=== PATIENT | female | born 1940 | race Caucasian/White ===

== ENCOUNTER 2018-01-31 05:57 | Inpatient (IN) | payer BC, OTHER ==
[~2018-01-31] VITALS: Ht 160 cm; Wt 75.9 kg
[2018-01-31] MEDS ORDERED: METHYLPREDNISOLONE 125 MG VIAL IV STA (06:15)
[2018-01-31] MEDS ORDERED: HYDROCODONE/HOMATROPINE SYRUP 5MG/1.5MG 5ML UDP PO STA (06:15)
[2018-01-31] MEDS ORDERED: LEVALBUTEROL 1.25MG/0.5ML NEB INH STA ×2 (06:15→08:12)
[2018-01-31 06:25] LABS: EOS % 15.6 %; EOS ABS # 1.56 K/uL (0-0.5); HEMATOCRIT 41.1 % (37-47); HEMOGLOBIN 14.5 g/dL (12.0-16.0); IG# 0.04 K/uL (0.00-0.02); LYMPH % 22.1 %; MEAN CELL VOLUME 90.7 fL (80-100); MEAN CORPUSCULAR HGB CONC 35.3 g/dl (32-36); NEUT % 51.9 %; NEUT ABS # 5.17 K/uL (1.4-6.5); PLATELET COUNT 244 K/uL (130-400); RED CELL DISTRIBUTION WIDTH CV 12.8 % (11.5-14.5); RED CELL DISTRIBUTION WIDTH SD 42.1 fL (36.4-46.3); WHITE BLOOD COUNT 9.97 K/uL (4.8-10.8)
[2018-01-31] MEDS ORDERED: PIPERACILLIN/TAZOBACTAM 4.5 GM/100ML D5W IV STA (06:31)
--- NOTE | 2018-01-31 06:34 | DIAGNOSTIC IMAGING REPORT ---
CHEST ONE VIEW PORTABLE CLINICAL HISTORY: Pt c/o SOB dyspnea COMPARISON STUDY: No previous studies for comparison. FINDINGS: The bones soft tissues and hemidiaphragms are normal. The cardiomediastinal silhouette is normal. The lungs are clear. The pulmonary vasculature is some increased IMPRESSION: Pulmonary vascular congestion The above report was generated using voice recognition software. It may contain grammatical, syntax or spelling errors. Electronically signed by: Benny Joshi M.D. 01/31/2018 6:32 AM Dictated Date/Time: 01/31/2018 6:29 AM
[2018-01-31] MEDS ORDERED: HYDR12.55 PO (06:45)
[2018-01-31] MEDS ORDERED: LEVAQUIN 750MG / 150ML D5W IV ONE (06:45)
[2018-01-31] MEDS ORDERED: LORA-741 PO (06:45)
[2018-01-31 06:46] LABS: ALBUMIN 3.6 gm/dl (3.4-5.0); CALCIUM 8.5 mg/dl (8.5-10.1); CREATININE 0.94 mg/dl (0.60-1.20); POTASSIUM 4.1 mmol/L (3.5-5.1)
[2018-01-31] MEDS ORDERED: TRAM-10 PO (06:46)
[2018-01-31] MEDS ORDERED: METO-217 PO (06:46)
[2018-01-31] MEDS ORDERED: FUROSEMIDE 40 MG/4 ML VIAL IV STA (06:47)
[2018-01-31 06:59] LABS: CKMB 5.1 ng/ml (0.5-3.6); TOTAL PROTEIN 7.3 gm/dl (6.4-8.2)
--- NOTE | 2018-01-31 07:12 | EMERGENCY ROOM VISIT NOTE ---
History Report prepared by Fabiola: Dot Johnson Under the Supervision of: Dr. Pooja Vail M.D. First contact with patient: 06:07 Chief Complaint: SHORTNESS OF BREATH Stated Complaint: SHORT OF BREATH Nursing Triage Summary: pt brought to ed via ems. pt traveled from [place] for business. pt reports non productive cough x 1 month and SOB that started last night and progressively worsened. per ems pt was speaking in 1-2 words and using accessory muscles. O2 sat on room air was 85%. EMS gave pt duoneb and pt went into a rapid a fib in 170s. 10mg cardizem administered. Pt currenlty NSR. History of Present Illness The patient is a 77 year old female who presents to the Emergency Room with complaints of a worsening cough for the past month. She recently traveled to the area from [place] for business. She was at her hotel last night and could not sleep due to her worsening cough. She felt very short of breath and called an ambulance. The patient received a breathing treatment en route which caused her to go into rapid a-fib with RVR. She then received Cardizem en route. The patient denies any chest pain. She is currently on NC/O2 but is not typically on oxygen. She becomes more short of breath with talking. Source of History: patient Onset: 1 month ago Position: chest (respiratory) Quality: other (cough) Timing: worsening Modifying Factors (Worsening): other (talking) Modifying Factors (Relieving): oxygen Associated Symptoms: + SOB, No chest pain Review of Systems See HPI for pertinent positives & negatives. A total of 10 systems reviewed and were otherwise negative. Past Medical & Surgical Medical Problems: (1) Acute respiratory failure with hypoxia (2) Lumbago Family History No pertinent history stated. Social History Smoking Status: Never Smoker Occupation Status: employed Current/Historical Medications Scheduled Hydrochlorothiazide (Hydrochlorothiazide), 1 TAB PO DAILY Losartan Potassium (Cozaar), 1 TAB PO DAILY Metoprolol Succinate (Toprol Xl), 50 MG PO DAILY Simvastatin (Zocor), 1 TAB PO HS Scheduled PRN Budesonide/Formoterol Fumarate (Symbicort 160-4.5 Mcg/Act), 2 PUFFS INH BID PRN for SOB/Wheezing Lorazepam (Ativan), 0.5 MG PO BID PRN for Anxiety Tramadol (Ultram), 50 MG PO Q6 PRN for Pain Miscellaneous Medications Fluticasone Propionate (Nasal) (Flonase Allergy Relief) Allergies Coded Allergies: No Known Allergies (Unverified , 01/31/18) Physical Exam Vital Signs Date Time Temp Pulse Resp B/P (MAP) Pulse Ox O2 Delivery O2 Flow Rate FiO2 01/31/18 08:44 89 22 126/79 99 Nasal Cannula 4.0 01/31/18 08:32 72 18 97 Nasal Cannula 3.0 01/31/18 07:50 76 20 129/69 98 Nasal Cannula 4.0 01/31/18 07:01 81 24 90/60 96 Nasal Cannula 5.0 01/31/18 06:42 91 Nasal Cannula 2.0 01/31/18 06:24 90 01/31/18 06:18 99 01/31/18 06:16 147 01/31/18 06:15 116 01/31/18 06:10 91 Nasal Cannula 4.0 01/31/18 06:06 88 Room Air 01/31/18 06:04 99 01/31/18 06:03 94 01/31/18 05:58 36.5 90 36 135/84 88 Room Air Physical Exam GENERAL: Awake, alert, appears very uncomfortable. HENT: Normocephalic, atraumatic. Oropharynx unremarkable. EYES: Normal conjunctiva. Sclera non-icteric. NECK: Supple. No nuchal rigidity. FROM. No JVD. RESPIRATORY: Bilateral expiratory wheezes. CARDIAC: Regular rate, normal rhythm. Extremities warm and well perfused. Pulses equal. ABDOMEN: Soft, non-distended. No tenderness to palpation. No rebound or guarding. No masses. RECTAL: Deferred. MUSCULOSKELETAL: Chest examination reveals no tenderness. The back is symmetrical on inspection without obvious abnormality. There is no CVA tenderness to palpation. No joint edema. LOWER EXTREMITIES: Calves are equal size bilaterally and non-tender. No edema. No discoloration. NEURO: Normal sensorium. No sensory or motor deficits noted. SKIN: No rash or jaundice noted. Medical Decision & Procedures ER Provider Diagnostic Interpretation: Radiology results as stated below per my review and radiologist interpretation: CHEST ONE VIEW PORTABLE CLINICAL HISTORY: Pt c/o SOB dyspnea COMPARISON STUDY: No previous studies for comparison. FINDINGS: The bones soft tissues and hemidiaphragms are normal. The cardiomediastinal silhouette is normal. The lungs are clear. The pulmonary vasculature is some increased IMPRESSION: Pulmonary vascular congestion The above report was generated using voice recognition software. It may contain grammatical, syntax or spelling errors. Electronically signed by: Benny Joshi M.D. 01/31/2018 6:32 AM Dictated Date/Time: 01/31/2018 6:29 AM (CHEST FOR PE) ANGIO WITH CT DOSE: 226.83 mGy.cm HISTORY: Chest pain. Dyspnea. Dyspnea TECHNIQUE: Multiaxial CT images of the chest were performed following the intravenous administration of contrast to evaluate the pulmonary arteries. Maximal intensity projection images were also obtained. A dose lowering technique was utilized adhering to the principles of ALARA. COMPARISON STUDY: None. FINDINGS: Somewhat limited exam due to patient respiratory motion. There are vasculature is not appreciated. Main or central pulmonary arterial vasculature enhances appropriately. There are no significant central filling defects. Somewhat distended air-filled esophagus without and with a moderately thickened wall. No major mediastinal or hilar adenopathy. Several small reactive nodes throughout. Moderate bibasilar atelectatic and/or infiltrative change. Moderate generalized degenerative change of the thoracic spine. No compression deformity. IMPRESSION: 1. Study is negative for major pulmonary embolus 2. Nondiagnostic evaluation of the peripheral arterial vasculature due to respiratory motion artifact. 3. Mild bibasilar atelectatic and/or infiltrative change. 4. Mild esophageal wall thickening throughout. 5. Several small reactive nodes in the hilar and mediastinal region most likely reactive. The above report was generated using voice recognition software. It may contain grammatical, syntax or spelling errors. Electronically signed by: Benny Joshi M.D. 01/31/2018 7:42 AM Dictated Date/Time: 01/31/2018 7:36 AM Laboratory Results 01/31/18 06:10 Red Blood Count 4.53, Mean Corpuscular Volume 90.7, Mean Corpuscular Hemoglobin 32.0, Mean Corpuscular Hemoglobin Concent 35.3, Mean Platelet Volume 10.0, Neutrophils (%) (Auto) 51.9, Lymphocytes (%) (Auto) 22.1, Monocytes (%) (Auto) 9.0, Eosinophils (%) (Auto) 15.6, Basophils (%) (Auto) 1.0, Neutrophils # (Auto ) 5.17, Lymphocytes # (Auto) 2.20, Monocytes # (Auto) 0.90, Eosinophils # (Auto ) 1.56, Basophils # (Auto) 0.10 01/31/18 06:10 Test 01/31/18 00:00 01/31/18 06:05 01/31/18 06:10 01/31/18 06:20 Urine Color YELLOW Urine Appearance CLEAR (CLEAR) Urine pH 5.0 (4.5-7.5) Urine Specific [place] 1.017 (1.000-1.030) Urine Protein NEG (NEG) Urine Glucose (UA) NEG (NEG) Urine Ketones NEG (NEG) Urine Occult Blood NEG (NEG) Urine Nitrite NEG (NEG) Urine Bilirubin NEG (NEG) Urine Urobilinogen NEG (NEG) Urine Leukocyte Esterase NEG (NEG) Influenza Type A (RT-PCR) Neg for Influ A (NEG) Influenza Type B (RT-PCR) Neg for Influ B (NEG) White Blood Count 9.97 K/uL (4.8-10.8) Red Blood Count 4.53 M/uL (4.2-5.4) Hemoglobin 14.5 g/dL (12.0-16.0) Hematocrit 41.1 % (37-47) Mean Corpuscular Volume 90.7 fL (80-100) Mean Corpuscular Hemoglobin 32.0 pg (25-34) Mean Corpuscular Hemoglobin Concent 35.3 g/dl (32-36) Platelet Count 244 K/uL (130-400) Mean Platelet Volume 10.0 fL (7.4-10.4) Neutrophils (%) (Auto) 51.9 % Lymphocytes (%) (Auto) 22.1 % Monocytes (%) (Auto) 9.0 % Eosinophils (%) (Auto) 15.6 % Basophils (%) (Auto) 1.0 % Neutrophils # (Auto) 5.17 K/uL (1.4-6.5) Lymphocytes # (Auto) 2.20 K/uL (1.2-3.4) Monocytes # (Auto) 0.90 K/uL (0.11-0.59) Eosinophils # (Auto) 1.56 K/uL (0-0.5) Basophils # (Auto) 0.10 K/uL (0-0.2) RDW Standard Deviation 42.1 fL (36.4-46.3) RDW Coefficient of Variation 12.8 % (11.5-14.5) Immature Granulocyte % (Auto) 0.4 % Immature Granulocyte # (Auto) 0.04 K/uL (0.00-0.02) Anion Gap 10.0 mmol/L (3-11) Est Creatinine Clear Calc Drug Dose 50.6 ml/min Estimated GFR () 68.8 Estimated GFR (Non- 59.3 BUN/Creatinine Ratio 17.5 (10-20) Calcium Level 8.5 mg/dl (8.5-10.1) Total Bilirubin 0.3 mg/dl (0.2-1) Aspartate Amino Transf (AST/SGOT) 28 U/L (15-37) Alanine Aminotransferase (ALT/SGPT) 26 U/L (12-78) Alkaline Phosphatase 72 U/L (45-117) Total Creatine Kinase 170 U/L (26-192) Creatine Kinase MB 5.1 ng/ml (0.5-3.6) Creatine Kinase MB Ratio 3.0 (0-3.0) Pro-B-Type Natriuretic Peptide 253 pg/ml (0-900) Total Protein 7.3 gm/dl (6.4-8.2) Albumin 3.6 gm/dl (3.4-5.0) Globulin 3.7 gm/dl (2.5-4.0) Albumin/Globulin Ratio 1.0 (0.9-2) Test 01/31/18 06:43 01/31/18 07:45 Bedside D-Dimer > 450 ng/mlFEU (0-450) Influenza Type A Antigen Neg for Influ A (NEG) Influenza Type B Antigen Neg for Influ B (NEG) Labs reviewed by ED physician. Medications Administered Medications (Trade) Dose Ordered Sig/Kavita Route Start Time Stop Time Status Last Admin Dose Admin Hydrocodone Bit/ Homatropine Methylb (Hycodan Syrup) 5 ml NOW STAT PO 01/31/18 06:15 01/31/18 06:18 DC 01/31/18 06:24 5 ML Methylprednisolone Sodium Succinate (Solu-Medrol IV) 60 mg NOW STAT IV 01/31/18 06:15 01/31/18 06:18 DC 01/31/18 06:24 60 MG Piperacillin Sod/ Tazobactam Sod (Zosyn Iv) 4.5 gm NOW STAT IV 01/31/18 06:31 01/31/18 06:34 DC 01/31/18 07:03 4.5 GM Levofloxacin (Levaquin / D5W) 750 mg NOW ONCE IV 01/31/18 06:45 01/31/18 06:46 DC 01/31/18 07:46 750 MG Furosemide (Lasix Inj) 40 mg NOW STAT IV 01/31/18 06:47 01/31/18 06:48 DC 01/31/18 07:03 40 MG Levalbuterol (Xopenex 1.25MG/ 0.5ML Neb) 1.25 mg NOW STAT INH 01/31/18 08:12 01/31/18 08:13 DC 01/31/18 08:31 1.25 MG ECG Per My Interpretation Indication: SOB/dyspnea Rate (beats per minute): 89 Rhythm: normal sinus Findings: no acute ischemic change, other (no ST elevation or depression) ED Course 0607: Past medical records reviewed. The patient was evaluated in room A12B. A complete history and physical examination was performed. 0615: Solu-Medrol 60 mg IV, Levalbuterol 1.25 mg INH, Hycodan Syrup 5 ml PO 0631: Zosyn 4.5 gm IV 0645: Levofloxacin 750 mg IV 0647: Lasix 40 mg IV 0700: I reassessed the patient and she is stable at this time. 0749: Upon reevaluation the patient is doing well. I discussed the results and treatment plan with the patient. I answered all pertaining questions that she had. She expressed understanding and verbalized agreement. 0757: I spoke with Dr. Urbina. We discussed the patient's case. The patient will be evaluated by the [facility] for further management. Medical Decision Differential diagnosis: Etiologies such as infections, reactive airway disease, pneumonia, pneumothorax , COPD, CHF, cardiac ischemia, pulmonary embolism, musculoskeletal, gastrointestinal, as well as others were entertained. This is a 77-year-old female who presents the emergency department complaining of hypoxia. The patient is not normally on oxygen and has been complaining of a cough that has been ongoing for the past month. She is flu negative however was given breathing treatments as well as Solu-Medrol on Hycodan here in the emergency department. She was found to have an elevation in her troponin. Based on the patient's chest x-ray she was given Lasix. Because the patient continued to be hypoxic as well as her travel history she was sent for CAT scan of the chest. She was started on antibiotics. I did discuss this case with the hospitalist service who agreed that the patient. Patient was in agreement with the treatment plan. Medication Reconcilliation Current Medication List: was personally reviewed by me Blood Pressure Screening Patient's blood pressure: Normal blood pressure Consults Time Called: [phone] Consulting Physician: Dr. Urbina Returned Call: [phone] Urbina. We discussed the patient's case. The patient will be evaluated by the [facility] for further management. Impression Primary Impression: Hypoxia Critical Care I have personally spent greater than 30 minutes of critical care time in the direct management of this patient. This includes bedside care, interpretation of diagnostic studies, and testing, discussion with consultants, patient, and family members, and other required patient management activities. This 30 minutes is in excess of all separately billable procedures. Scribe Attestation The scribe's documentation has been prepared under my direction and personally reviewed by me in its entirety. I confirm that the note above accurately reflects all work, treatment, procedures, and medical decision making performed by me. Departure Information Dispostion Being Evaluated By Hospitalist Referrals No Doctor, Assigned (PCP) Patient Instructions My [facility]
[2018-01-31] MEDS ORDERED: OPTIRAY 320 IV PRN (07:30)
--- NOTE | 2018-01-31 07:43 | DIAGNOSTIC IMAGING REPORT ---
(CHEST FOR PE) ANGIO WITH CT DOSE: 226.83 mGy.cm HISTORY: Chest pain. Dyspnea. Dyspnea TECHNIQUE: Multiaxial CT images of the chest were performed following the intravenous administration of contrast to evaluate the pulmonary arteries. Maximal intensity projection images were also obtained. A dose lowering technique was utilized adhering to the principles of ALARA. COMPARISON STUDY: None. FINDINGS: Somewhat limited exam due to patient respiratory motion. There are vasculature is not appreciated. Main or central pulmonary arterial vasculature enhances appropriately. There are no significant central filling defects. Somewhat distended air-filled esophagus without and with a moderately thickened wall. No major mediastinal or hilar adenopathy. Several small reactive nodes throughout. Moderate bibasilar atelectatic and/or infiltrative change. Moderate generalized degenerative change of the thoracic spine. No compression deformity. IMPRESSION: 1. Study is negative for major pulmonary embolus 2. Nondiagnostic evaluation of the peripheral arterial vasculature due to respiratory motion artifact. 3. Mild bibasilar atelectatic and/or infiltrative change. 4. Mild esophageal wall thickening throughout. 5. Several small reactive nodes in the hilar and mediastinal region most likely reactive. The above report was generated using voice recognition software. It may contain grammatical, syntax or spelling errors. Electronically signed by: Benny Joshi M.D. 01/31/2018 7:42 AM Dictated Date/Time: 01/31/2018 7:36 AM
[2018-01-31 08:14] LABS: INFLUENZA A PCR Neg for Influ A (NEG); INFLUENZA B PCR Neg for Influ B (NEG)
[2018-01-31] MEDS ORDERED: ONDANSETRON INJ 2 MG/ML 2 ML VIAL IV PRN (08:30)
[2018-01-31] MEDS ORDERED: ACETAMINOPHEN 325 MG TAB PO PRN (08:30)
[2018-01-31] MEDS ORDERED: POLYETHYLENE (MIRALAX) 17 GM PACK PO PRN (08:30)
[2018-01-31] MEDS ORDERED: MAGNESIUM HYDROXIDE SUSP 30 ML UDC PO PRN (08:30)
[2018-01-31] MEDS ORDERED: ALUMINUM/MAGNESIUM/SIMETH (MAALOX MAX) 30 ML UDC PO PRN (08:30)
[2018-01-31 08:32] VITALS: PULSE 72; O2SAT 97
[2018-01-31] MEDS ORDERED: LEVALBUTEROL 1.25MG/3ML NEB INH PRN (09:15)
--- NOTE | 2018-01-31 09:35 | History and Physical ---
History & Physical Date & Time of Service: Jan 31, 2018 at 09:17 Chief Complaint: Short Of Breath Primary Care Physician: No Doctor, Assigned History of Present Illness Source: patient Ms. Adame is a 77 y/o female with PMHx of HTN, HLD, Isolated Episode of Ventricular Tachycardia (Asymptomatic - 6 Beat), Benign Atrial Ectopy, and Possible Mild Asthma who presents to the ED c/o progressive cough x 1 month and worsening SOB starting last night. Patient resides in [place] and is here on business. 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 However, she states this coughing does not appear similar to her chronic cough. She stated initially the cough was minimally productive of sputum however is largely dry. She states she was told she may have asthma in the past but later someone said she did not. She does have Symbicort that she takes as needed when traveling in high altitude places but denies utilizing a rescue inhaler. She has not used her Symbicort for the symptoms. She reports, she was walking from the living room to the kitchen late last night and developed shortness of breath and is experiencing coughing attacks. She states it feels as if there is a blockage as she is inhaling. She denies chest pain or pleuritic chest pain. She states prior to arrival of EMS, she would only be able to speak 1-2 words without significant shortness of breath and coughing. At this time she is able to have a full conversation but still gets dyspneic with minimal exertion. She denies shortness of breath at rest after treatment in the ED. In the ambulance , she was treated with a DuoNeb treatment and converted to atrial fibrillation with RVR and was given 10 mg Cardizem and quickly converted to NSR. She denies a personal history of cardiac disease and. Does not think she has ever been diagnosed with heart failure. She does report family history of coronary artery disease and sudden cardiac only in male relatives on both maternal and paternal sides. She is not aware of specific diagnoses of any cardiomyopathies from this. In the ED, patient was hypoxic on room air with improvement with supplemental O2. She is remained in NSR and tolerated Xopenex nebulizers. She is afebrile without leukocytosis. Differential reveals high levels of eosinophilia. She was treated with Lasix 40 mg 1 dose and is producing urine. Zosyn and levofloxacin initiated. Past Medical/Surgical History 1. HTN 2. HLD 3. Isolated Episode of VT (Asymptomatic - 6 Beats) 4. Benign Atrial Ectopy 5. Possible Asthma 6. Vocal Cord Atrophy S/P Injections x 2 7. Retinal Detachment Repair Family History Heart Disease Lung Cancer MOTHER, Sudden Cardiac (In multiple male relatives - maternal and paternal side - before age 50 in male relatives) Social History Smoking Status: Never Smoker Smokeless Tobacco Use: No Alcohol Use: none Drug Use: none Housing status: lives with family Occupational Status: employed Allergies Coded Allergies: No Known Allergies (Unverified , 01/31/18) Home Medications Scheduled Hydrochlorothiazide (Hydrochlorothiazide), 1 TAB PO DAILY Losartan Potassium (Cozaar), 1 TAB PO DAILY Metoprolol Succinate (Toprol Xl), 50 MG PO DAILY Simvastatin (Zocor), 1 TAB PO HS Scheduled PRN Budesonide/Formoterol Fumarate (Symbicort 160-4.5 Mcg/Act), 2 PUFFS INH BID PRN for SOB/Wheezing Lorazepam (Ativan), 0.5 MG PO BID PRN for Anxiety Tramadol (Ultram), 50 MG PO Q6 PRN for Pain Miscellaneous Medications Fluticasone Propionate (Nasal) (Flonase Allergy Relief) Review of Systems Constitutional: No fever, No chills ENT: + nasal symptoms, No sore throat, No trouble swallowing Respiratory: + cough, + wheezing, + dyspnea on exertion, + dyspnea at rest ( improving), No sputum, No hemoptysis Cardiovascular: No chest pain, No orthopnea, No palpitations Abdomen: No pain, No nausea, No vomiting, No diarrhea, No constipation, No GI bleeding Musculoskeletal: + swelling (chronic b/l feet - intermittent), No calf pain Genitourinary - Female: No dysuria Hematologic / Lymphatic: No abnormal bleeding/bruising Integumentary: No rash Physical Exam Vital Signs Date Time Temp Pulse Resp B/P (MAP) Pulse Ox O2 Delivery O2 Flow Rate FiO2 01/31/18 08:44 89 22 126/79 99 Nasal Cannula 4.0 01/31/18 08:32 72 18 97 Nasal Cannula 3.0 01/31/18 07:50 76 20 129/69 98 Nasal Cannula 4.0 01/31/18 07:01 81 24 90/60 96 Nasal Cannula 5.0 01/31/18 06:42 91 Nasal Cannula 2.0 01/31/18 06:24 90 01/31/18 06:18 99 01/31/18 06:16 147 01/31/18 06:15 116 01/31/18 06:10 91 Nasal Cannula 4.0 01/31/18 06:06 88 Room Air 01/31/18 06:04 99 01/31/18 06:03 94 01/31/18 05:58 36.5 90 36 135/84 88 Room Air General Appearance: no apparent distress, + thin Head: normocephalic, atraumatic Eyes: sclerae normal ENT: hearing grossly normal, pharynx normal, + nasal congestion Neck: supple, no JVD, trachea midline Respiratory/Chest: no respiratory distress, no accessory muscle use, + crackles (bases b/l), + wheezing (scattered exp. wheeze) Cardiovascular: regular rate, rhythm, no gallop, no murmur Abdomen/GI: normal bowel sounds, non tender, soft Extremities/Musculoskelatal: no pedal edema Neurologic/Psych: alert, oriented x 3 Skin: normal color, warm/dry Diagnostics Laboratory Results Results Past 24 Hours Test 01/31/18 00:00 01/31/18 06:05 01/31/18 06:10 01/31/18 06:20 Range/Units Urine Color YELLOW Urine Appearance CLEAR CLEAR Urine pH 5.0 4.5-7.5 Urine Specific White 1.017 1.000-1.030 Urine Protein NEG NEG Urine Glucose (UA) NEG NEG Urine Ketones NEG NEG Urine Occult Blood NEG NEG Urine Nitrite NEG NEG Urine Bilirubin NEG NEG Urine Urobilinogen NEG NEG Urine Leukocyte Esterase NEG NEG Influenza Type A (RT-PCR) Neg for Influ A NEG Influenza Type B (RT-PCR) Neg for Influ B NEG White Blood Count 9.97 4.8-10.8 K/uL Red Blood Count 4.53 4.2-5.4 M/uL Hemoglobin 14.5 12.0-16.0 g/dL Hematocrit 41.1 37-47 % Mean Corpuscular Volume 90.7 80-100 fL Mean Corpuscular Hemoglobin 32.0 25-34 pg Mean Corpuscular Hemoglobin Concent 35.3 32-36 g/dl Platelet Count 244 130-400 K/uL Mean Platelet Volume 10.0 7.4-10.4 fL Neutrophils (%) (Auto) 51.9 % Lymphocytes (%) (Auto) 22.1 % Monocytes (%) (Auto) 9.0 % Eosinophils (%) (Auto) 15.6 % Basophils (%) (Auto) 1.0 % Neutrophils # (Auto) 5.17 1.4-6.5 K/uL Lymphocytes # (Auto) 2.20 1.2-3.4 K/uL Monocytes # (Auto) 0.90 0.11-0.59 K/uL Eosinophils # (Auto) 1.56 0-0.5 K/uL Basophils # (Auto) 0.10 0-0.2 K/uL RDW Standard Deviation 42.1 36.4-46.3 fL RDW Coefficient of Variation 12.8 11.5-14.5 % Immature Granulocyte % (Auto) 0.4 % Immature Granulocyte # (Auto) 0.04 0.00-0.02 K/uL Sodium Level 130 136-145 mmol/L Potassium Level 4.1 3.5-5.1 mmol/L Chloride Level 98 98-107 mmol/L Carbon Dioxide Level 22 21-32 mmol/L Anion Gap 10.0 3-11 mmol/L Blood Urea Nitrogen 17 7-18 mg/dl Creatinine 0.94 0.60-1.20 mg/dl Est Creatinine Clear Calc Drug Dose 50.6 ml/min Estimated GFR () 68.8 Estimated GFR (Non- 59.3 BUN/Creatinine Ratio 17.5 10-20 Random Glucose 122 70-99 mg/dl Calcium Level 8.5 8.5-10.1 mg/dl Total Bilirubin 0.3 0.2-1 mg/dl Aspartate Amino Transf (AST/SGOT) 28 15-37 U/L Alanine Aminotransferase (ALT/SGPT) 26 12-78 U/L Alkaline Phosphatase 72 45-117 U/L Total Creatine Kinase 170 26-192 U/L Creatine Kinase MB 5.1 0.5-3.6 ng/ml Creatine Kinase MB Ratio 3.0 0-3.0 Troponin I 0.337 0-0.045 ng/ml Pro-B-Type Natriuretic Peptide 253 0-900 pg/ml Total Protein 7.3 6.4-8.2 gm/dl Albumin 3.6 3.4-5.0 gm/dl Globulin 3.7 2.5-4.0 gm/dl Albumin/Globulin Ratio 1.0 0.9-2 Test 01/31/18 06:43 01/31/18 07:45 Range/Units Bedside D-Dimer > 450 0-450 ng/mlFEU Microbiology Results 01/31/18 Blood Culture, Received Pending 01/31/18 Blood Culture, Received Pending Diagnostic Radiology (CHEST FOR PE) ANGIO WITH FINDINGS: Somewhat limited exam due to patient respiratory motion. There are vasculature is not appreciated. Main or central pulmonary arterial vasculature enhances appropriately. There are no significant central filling defects. Somewhat distended air-filled esophagus without and with a moderately thickened wall. No major mediastinal or hilar adenopathy. Several small reactive nodes throughout. Moderate bibasilar atelectatic and/or infiltrative change. Moderate generalized degenerative change of the thoracic spine. No compression deformity. IMPRESSION: 1. Study is negative for major pulmonary embolus 2. Nondiagnostic evaluation of the peripheral arterial vasculature due to respiratory motion artifact. 3. Mild bibasilar atelectatic and/or infiltrative change. 4. Mild esophageal wall thickening throughout. 5. Several small reactive nodes in the hilar and mediastinal region most likely reactive. EKG Normal sinus rhythm Normal ECG No previous ECGs available Impression Assessment and Plan Ms. Adame is a 77 y/o female with PMHx of HTN, HLD, Isolated Episode of Ventricular Tachycardia (Asymptomatic - 6 Beat), Benign Atrial Ectopy, and Possible Mild Asthma who presents to the ED c/o progressive cough x 1 month and worsening SOB starting last night. Acute Hypoxic Respiratory Failure 2/2 Bronchitis vs Asthma Exacerbation vs Atypical/Viral Etiology: -Differential reveals high levels of eosinophilia -may be asthma versus atypical etiology - given resident of [place] possible fungal etiology/ histoplasmosis? -Imaging showing vascular congestion do not feel that this is directly cardiac - but more of a pulmonary etiology --We will monitor output after Lasix and hold on further dosing at this time -Doxycycline 100 mg IV BID -Methylprednisolone 40 mg IV Q8H; Xopenex/Atrovent nebs -Mucinex BID and Hycodan PRN -Consult pulmonology - appreciate recommendations - atypical process? 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 I agree w/ the jean baptiste components of her documentation. 77yo female with h/o HTN and vocal cord atrophy (or unilateral paralysis?) who presents with 1 month of cough and wheezing along with dyspnea. The dyspnea has been primarily with heavy exertion. Despite such she reports going to the gym 4-5x's a week for the last month. Denies fevers, chills, sweats, or weight loss/gain. Some of the symptoms have been worse after eating. Last pm in the middle of the night her symptoms got significantly worse. En route via EMS to [facility] received duoneb for wheezing. She then developed rapid a. fib with HR in the 170s. She received cardizem IV x 1 and spontaneously converted to NSR. In the ER received antibiotics, steroids, and lasix IV. I saw the patient after she was admitted and she reported feeling better. Denies a formal dx of asthma, but states she takes symbicort and uses prn oxygen when she is at higher elevations in [place]. Had PFTs several years ago and was told they were normal. PMH, PSH, allergies, meds, sochx, famhx, ros - reviewed VSS, afebrile, mild o2 requirement gen - NAD, no dyspnea neck - no JVD heart - RRR, s1, s2, no murmur lungs - mild end-exp wheeze b/l, no rales abd - soft, NT, ND, BS+ ext - trace edema b/l skin - no rashes labs - Na 130 troponin - initial 0.3, climbing to 2 on next check procalcitonin negative BNP wnl CTA chest - reviewed EKG - no ST changes A/P: 1. acute hypoxic resp failure - etiology uncertain 2. positive troponin in the absence EKG ischemic changes or ischemic symptoms 3. rapid a. fib by report - now in NSR 4. significant eosinophilia 5. hyponatremia - possibly related to chronic HCTZ use 6. chronic cough/dyspnea - etiology uncertain 7. vocal cord atrophy (vs unilateral paralysis?) Although she received IV diuretic in the ER I do not believe the primary cause of #1 above is acute CHF. Additionally the positive troponin may be type 2 AL (demand ischemia) in setting of rapid a. fib. She seems to have a reactive bronchitis - unclear if due to atypical bacteria ( mycoplasma, etc) vs viral etiology vs fungal vs other. She also has esophageal wall thickening on CTA chest - could she have reflux induced cough and wheezing? The eosinophilia is concerning for asthmatic process or other allergic type disease. Will need repeat cbc w/ diff in AM. Agree with narrow spectrum abx to cover for possibility of atypical bacterial pathogens (mycoplasma, etc). Echo. Serial troponins. Nebs. Agree we should hold off on heparin systemically at this time. Pulmonary consultation requested. Consider steroids. PPI due to esophageal findings. Edouard Urbina MD
[2018-01-31 09:37] LABS: INFLUENZA B ANTIGEN Neg for Influ B (NEG)
[2018-01-31] MEDS ORDERED: SIMV10TA5 PO (09:37)
[2018-01-31] MEDS ORDERED: LOSA50TA6 PO (09:38)
[2018-01-31] MEDS ORDERED: SYMIN INH (09:39)
[2018-01-31] MEDS ORDERED: LORAZEPAM 0.5 MG TAB PO PRN (09:45)
[2018-01-31] MEDS ORDERED: TRAMADOL HCL 50 MG TAB PO PRN (09:45)
[2018-01-31] MEDS ORDERED: FLUT0.15 (09:47)
[2018-01-31] MEDS ORDERED: GUAIFENESIN 600 MG TABCR PO ONE (09:52)
[2018-01-31 13:35] VITALS: BP 160/84; PULSE 85; TEMP 36.6; O2SAT 99; Ht 160 cm; Wt 75.9 kg
--- NOTE | 2018-01-31 14:12 | Hospitalist Progress Note ---
Hospitalist Progress Note Date of Service Jan 31, 2018. Subjective Pt evaluation today including: conversation w/ patient, physical exam, chart review, lab review, review of studies, review of inpatient medication list Patient was reassessed at 1400. Objective Vital Signs Date Time Temp Pulse Resp B/P (MAP) Pulse Ox O2 Delivery O2 Flow Rate FiO2 01/31/18 13:35 36.6 85 22 160/84 99 Nasal Cannula 4.0 01/31/18 12:27 84 20 104/81 97 Nasal Cannula 4.0 01/31/18 10:52 77 20 107/72 99 Nasal Cannula 4.0 01/31/18 10:28 72 01/31/18 10:07 84 99/68 100 Room Air 01/31/18 08:44 89 22 126/79 99 Nasal Cannula 4.0 01/31/18 08:32 72 18 97 Nasal Cannula 3.0 01/31/18 07:50 76 20 129/69 98 Nasal Cannula 4.0 01/31/18 07:01 81 24 90/60 96 Nasal Cannula 5.0 01/31/18 06:42 91 Nasal Cannula 2.0 01/31/18 06:24 90 01/31/18 06:18 99 01/31/18 06:16 147 01/31/18 06:15 116 01/31/18 06:10 91 Nasal Cannula 4.0 01/31/18 06:06 88 Room Air 01/31/18 06:04 99 01/31/18 06:03 94 01/31/18 05:58 36.5 90 36 135/84 88 Room Air Laboratory Results Last 24 Hours Test 01/31/18 00:00 01/31/18 06:05 01/31/18 06:10 01/31/18 06:20 Urine Color YELLOW Urine Appearance CLEAR Urine pH 5.0 Urine Specific [place] 1.017 Urine Protein NEG Urine Glucose (UA) NEG Urine Ketones NEG Urine Occult Blood NEG Urine Nitrite NEG Urine Bilirubin NEG Urine Urobilinogen NEG Urine Leukocyte Esterase NEG Influenza Type A (RT-PCR) Neg for Influ A Influenza Type B (RT-PCR) Neg for Influ B White Blood Count 9.97 K/uL Red Blood Count 4.53 M/uL Hemoglobin 14.5 g/dL Hematocrit 41.1 % Mean Corpuscular Volume 90.7 fL Mean Corpuscular Hemoglobin 32.0 pg Mean Corpuscular Hemoglobin Concent 35.3 g/dl Platelet Count 244 K/uL Mean Platelet Volume 10.0 fL Neutrophils (%) (Auto) 51.9 % Lymphocytes (%) (Auto) 22.1 % Monocytes (%) (Auto) 9.0 % Eosinophils (%) (Auto) 15.6 % Basophils (%) (Auto) 1.0 % Neutrophils # (Auto) 5.17 K/uL Lymphocytes # (Auto) 2.20 K/uL Monocytes # (Auto) 0.90 K/uL Eosinophils # (Auto) 1.56 K/uL Basophils # (Auto) 0.10 K/uL RDW Standard Deviation 42.1 fL RDW Coefficient of Variation 12.8 % Immature Granulocyte % (Auto) 0.4 % Immature Granulocyte # (Auto) 0.04 K/uL Sodium Level 130 mmol/L Potassium Level 4.1 mmol/L Chloride Level 98 mmol/L Carbon Dioxide Level 22 mmol/L Anion Gap 10.0 mmol/L Blood Urea Nitrogen 17 mg/dl Creatinine 0.94 mg/dl Est Creatinine Clear Calc Drug Dose 50.6 ml/min Estimated GFR () 68.8 Estimated GFR (Non- 59.3 BUN/Creatinine Ratio 17.5 Random Glucose 122 mg/dl Calcium Level 8.5 mg/dl Total Bilirubin 0.3 mg/dl Aspartate Amino Transf (AST/SGOT) 28 U/L Alanine Aminotransferase (ALT/SGPT) 26 U/L Alkaline Phosphatase 72 U/L Total Creatine Kinase 170 U/L Creatine Kinase MB 5.1 ng/ml Creatine Kinase MB Ratio 3.0 Troponin I 0.337 ng/ml Pro-B-Type Natriuretic Peptide 253 pg/ml Total Protein 7.3 gm/dl Albumin 3.6 gm/dl Globulin 3.7 gm/dl Albumin/Globulin Ratio 1.0 Test 01/31/18 06:43 01/31/18 07:45 01/31/18 11:53 Bedside D-Dimer > 450 ng/mlFEU Influenza Type A Antigen Neg for Influ A Influenza Type B Antigen Neg for Influ B Troponin I 2.140 ng/ml Procalcitonin < 0.05 ng/ml Assessment and Plan Ms. Adame is a 77 y/o female with PMHx of HTN, HLD, Isolated Episode of Ventricular Tachycardia (Asymptomatic - 6 Beat), Benign Atrial Ectopy, and Possible Mild Asthma who presents to the ED c/o progressive cough x 1 month and worsening SOB starting last night. Acute Hypoxic Respiratory Failure 2/2 Bronchitis vs Asthma Exacerbation vs Atypical/Viral Etiology: -Differential reveals high levels of eosinophilia -may be asthma versus atypical etiology - given resident of [place] possible fungal etiology/ histoplasmosis? -Imaging showing vascular congestion do not feel that this is directly cardiac - but more of a pulmonary etiology --We will monitor output after Lasix and hold on further dosing at this time -Doxycycline 100 mg IV BID -Methylprednisolone 40 mg IV Q8H; Xopenex/Atrovent nebs -Mucinex BID and Hycodan PRN -Consult pulmonology - appreciate recommendations - atypical process? 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
[2018-01-31] MEDS ORDERED: ASPIRIN 325 MG ECTAB PO ONE (14:15)
[2018-01-31] MEDS: LEVALBUTEROL 1.25MG/0.5ML NEB INH SCH ×2 (15:00→19:46)
[2018-01-31] MEDS: IPRATROPIUM BROMIDE NEB SOLN 0.02% 2.5 ML VIAL INH SCH ×2 (15:00→19:46)
[2018-01-31] MEDS ORDERED: PANTOprazole SOD 40 MG TAB PO STA (15:50)
[2018-01-31 16:00] VITALS: O2SAT 95
[2018-01-31] MEDS ORDERED: METHYLPREDNISOLONE IV 40 MG in SYRINGE 0 ML IV SCH (16:00)
[2018-01-31] MEDS ORDERED: DOXYCYCLINE IV 100 MG in DEXTROSE 5% 100ML 100 ML IV SCH ×2 (16:00→21:00)
[2018-01-31 16:10] VITALS: BP 125/60; PULSE 85; TEMP 36.8; O2SAT 98
--- NOTE | 2018-01-31 16:28 | Progress Note ---
Progress Note Date of Service Jan 31, 2018. Progress Note Patient was seen and re-evaluated at 1400. Troponin draw at noon elevated to 2 from 0.3. Patient reports that she continues to feel somewhat better compared to initial presentation. Currently no chest pain and denies any chest pain since the onset of her SOB. She does report intermittent CP that has occurred for "years" but is minimal and self-aborting. Obtained another EKG which shows NSR with PACs and lengthening QT. Will reassess electrolytes given given Lasix in ED. This may be just demand from respiratory illness and A Fib RVR prior to arriving to ED. Will continue to trend. Will hold on institution of heparin gtt at this time. Will give loading dose ASA. Continue with EKG PRN if chest pain occurs.
--- NOTE | 2018-01-31 17:26 | Pulmonary Consultation ---
History General Date of Service: Jan 31, 2018. Stated Complaint: Acute Respiratory Failure With Hypoxia HPI The patient is a 77 year old female who presents to [facility] with complaints of Acute Respiratory Failure With Hypoxia. The patient's primary care provider is No Doctor, Assigned. 77-year-old female admitted for progressive shortness of breath. Patient has a past medical history significant for hypertension, hyperlipidemia, asymptomatic ventricular tachycardia, benign atrial ectopy, vocal cord atrophy, chronic cough and possible asthma. During our conversation the patient did note she was mildly short of breath but I took her off the oxygen and monitored her throughout the 15-20 minute conversation and on room air the patient was notably saturating at 96-97%. During our conversation though she did have bouts on the EKG that appeared to be atrial fibrillation up to 130 bpm. She actually notes a history of progressive dyspnea possibly starting 5 years ago when she was in [facility] at [address]. After that she return to the [place] area where her primary care physician performed a pulmonary function study and she is not sure the results but her doctor at that time started on Symbicort. 4-5 years ago she was able to perform heavy physical activity but since that time she has notably slowed down. This is come to the point the last 2-3 months where she is unable to perform on an elliptical workout device for more than 30-60 seconds. During these episodes of shortness of breath the patient is not experiencing classic cardiac chest pain and/or palpitations. She is also denying: Fever, chills, unintentional weight loss, travel outside the [place], hemoptysis, pleurisy, exercise-induced coughing or B type symptoms. I should note the patient flies quite often and does not experience shortness of breath and require supplemental oxygen during flights. Workup WBC: 10K (Eos# 1.56) Troponin: 0.337, 2.140 BNP: 253 Pro-calcitonin: <0.05 EKG (0600) normal sinus rhythm EKG (1400) sinus rhythm with PACs Influenza A and B (PCR and antigen testing negative) Chest x-ray: Hilar fullness with cephalization CTA thorax: No pulmonary embolism, severe respiratory motion artifact, mild basilar atelectasis, hilar or mediastinal adenopathy Active Problems 1. Possible Asthma 2. Atrial Premature Complex 3. Dyslipidemia 4. Hypertension 5. Shortness Of Breath 6. Asymptomatic Ventricular Tachycardia 7. 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 Chronic Cough Family History 1. Coronary Artery Disease 2. Sudden Cardiac Arrest #3 mother of lung cancer Social History Smoking Status: Never Smoker Smokeless Tobacco Use: No Alcohol Use: none Drug Use: none Housing status: lives with family Occupational Status: employed Current Meds CurrentMeds_2_twCiteListControlStart Simvastatin 10 MG Oral Tablet; TAKE 1 TABLET BY MOUTH AT BEDTIME; Losartan Potassium 50 MG Oral Tablet; take 1 tablet by mouth once daily; Metoprolol Succinate ER 50 MG Oral Tablet Extended Release 24 Hour; take Aspirin 81 MG Oral Tablet; TAKE 1 TABLET DAILY; Therapy: Ativan 0.5 MG Oral Tablet; TAKE 1 TABLET DAILY NEEDED; Therapy: Calcium TABS; Take 1 tablet daily; Therapy: (Recorded:10May2012) to Premarin CREA; INSERT 1 APPLICATOR Twice a Week; Therapy: Prempro 0.3-1.5 MG Oral Tablet; TAKE 1 TABLET DAILY; Therapy: Allergies No Known Drug Allergies Historian: patient, EMS Review of Systems Constitutional: reports: weakness Eyes: reports: no symptoms ENT: reports: no symptoms Cardiovascular: reports: as stated in HPI Respiratory: reports: as stated in HPI Gastrointestinal: reports: no symptoms Genitourinary - Female: reports: no symptoms Musculoskeletal: reports: other (Patient does note bilateral index finger spasms over the last month) Integumentary: reports: no symptoms Neurologic: reports: no symptoms Psychiatric: reports: no symptoms Endocrine: no symptoms Hematologic / Lymphatic: no symptoms Allergic / Immunologic: no symptoms Past Medical History Past Medical History: Please refer to HPI Past Surgical History: Please refer to HPI Family History Heart Disease Lung Cancer MOTHER, Sudden Cardiac (In multiple male relatives - maternal and paternal side - before age 50 in male relatives) Please refer to HPI Social History Please refer to HPI Hx Tobacco Use In Past Year?: No Smoking Status: Never Smoker Housing status: lives with family Occupational Status: employed History of MDRO History of MDRO: No Allergies Coded Allergies: No Known Allergies (Unverified , 01/31/18) Current Medications Reported Home Medications Medications Dose Route/Sig Max Daily Dose Days Date Category Flonase Allergy Relief (Fluticasone Propionate (Nasal)) 50 Mcg/Act Spr 01/31/18 Reported Symbicort 160-4.5 Mcg/Act (Budesonide/Formoterol Fumarate) 60 Puffs/Inhaler Aero 2 Puffs INH BID PRN 01/31/18 Reported Cozaar (Losartan Potassium) 50 Mg Tab 1 Tab PO DAILY 30 01/31/18 Reported Zocor (Simvastatin) 10 Mg Tab 1 Tab PO HS 30 01/31/18 Reported Ultram (Tramadol HCl) 50 Mg Tab 50 Mg PO Q6 PRN 01/31/18 Reported Toprol Xl (Metoprolol Succinate) 50 Mg Tabcr 50 Mg PO DAILY 01/31/18 Reported Hydrochlorothiazide 12.5 Mg Tab 1 Tab PO DAILY 01/31/18 Reported Ativan (Lorazepam) 0.5 Mg Tab 0.5 Mg PO BID PRN 01/31/18 Reported Physical Physical Exam Vital Signs: Date Time Temp Pulse Resp B/P (MAP) Pulse Ox O2 Delivery O2 Flow Rate FiO2 01/31/18 16:10 36.8 85 22 125/60 (81) 98 Nasal Cannula 4.0 01/31/18 13:35 36.6 85 22 160/84 99 Nasal Cannula 4.0 01/31/18 12:27 84 20 104/81 97 Nasal Cannula 4.0 01/31/18 10:52 77 20 107/72 99 Nasal Cannula 4.0 01/31/18 10:28 72 01/31/18 10:07 84 99/68 100 Room Air 01/31/18 08:44 89 22 126/79 99 Nasal Cannula 4.0 01/31/18 08:32 72 18 97 Nasal Cannula 3.0 01/31/18 07:50 76 20 129/69 98 Nasal Cannula 4.0 01/31/18 07:01 81 24 90/60 96 Nasal Cannula 5.0 01/31/18 06:42 91 Nasal Cannula 2.0 01/31/18 06:24 90 01/31/18 06:18 99 01/31/18 06:16 147 01/31/18 06:15 116 01/31/18 06:10 91 Nasal Cannula 4.0 01/31/18 06:06 88 Room Air 01/31/18 06:04 99 01/31/18 06:03 94 01/31/18 05:58 36.5 90 36 135/84 88 Room Air General Appearance: uncomfortable Head: NORMOCEPHALIC, ATRAUMATIC Eyes: PERRLA, NO DISCHARGE ENT: NORMAL EAR EXAM, NORMAL NASAL EXAM, NORMAL MOUTH EXAM, NORMAL THROAT EXAM Neck: NORMAL RANGE OF MOTION, NO TENDERNESS, TRACHEA MIDLINE, NO STRIDOR Respiratory: other (Mild crackles at the bases bilaterally) Cardiovasular: other (Irregular rate and rhythm with no murmurs rubs or gallops appreciated) Abdomen: NON TENDER, NORMAL BOWEL SOUNDS, NO REBOUND, NO MASSES, NO GUARDING Genitourinary - Female: EXTERNAL GENITALIA NORMAL Back: NORMAL INSPECTION, NO MIDLINE TENDERNESS, NO CVA TENDERNESS, NO PARAVERTEBRAL TTP Upper Extremities: NO EDEMA, NO DEFORMITY, NORMAL ROM Lower Extremities: NO EDEMA, NO DEFORMITY, NORMAL ROM Pulses: carotid (R) (2+), carotid (L) (2+), posterior tibial (R), posterior tibial (L) (2+) Neuro: ALERT, ORIENTED x 3, NORMAL MOTOR EXAM, NORMAL SENSATION, NORMAL CEREBELLAR EXAM Reflexes: biceps (R) (2+), bicpes (L) (2+), achilles (R) (2+), achilles (L) (2+ ) Babinski Testing: right (downgoing), left (downgoing) Psychiatric: NORMAL AFFECT Diagnostics Labs Results Past 24 Hours Test 01/31/18 00:00 01/31/18 06:05 01/31/18 06:10 01/31/18 06:20 Range/Units Urine Color YELLOW Urine Appearance CLEAR CLEAR Urine pH 5.0 4.5-7.5 Urine Specific [place] 1.017 1.000-1.030 Urine Protein NEG NEG Urine Glucose (UA) NEG NEG Urine Ketones NEG NEG Urine Occult Blood NEG NEG Urine Nitrite NEG NEG Urine Bilirubin NEG NEG Urine Urobilinogen NEG NEG Urine Leukocyte Esterase NEG NEG Influenza Type A (RT-PCR) Neg for Influ A NEG Influenza Type B (RT-PCR) Neg for Influ B NEG White Blood Count 9.97 4.8-10.8 K/uL Red Blood Count 4.53 4.2-5.4 M/uL Hemoglobin 14.5 12.0-16.0 g/dL Hematocrit 41.1 37-47 % Mean Corpuscular Volume 90.7 80-100 fL Mean Corpuscular Hemoglobin 32.0 25-34 pg Mean Corpuscular Hemoglobin Concent 35.3 32-36 g/dl Platelet Count 244 130-400 K/uL Mean Platelet Volume 10.0 7.4-10.4 fL Neutrophils (%) (Auto) 51.9 % Lymphocytes (%) (Auto) 22.1 % Monocytes (%) (Auto) 9.0 % Eosinophils (%) (Auto) 15.6 % Basophils (%) (Auto) 1.0 % Neutrophils # (Auto) 5.17 1.4-6.5 K/uL Lymphocytes # (Auto) 2.20 1.2-3.4 K/uL Monocytes # (Auto) 0.90 0.11-0.59 K/uL Eosinophils # (Auto) 1.56 0-0.5 K/uL Basophils # (Auto) 0.10 0-0.2 K/uL RDW Standard Deviation 42.1 36.4-46.3 fL RDW Coefficient of Variation 12.8 11.5-14.5 % Immature Granulocyte % (Auto) 0.4 % Immature Granulocyte # (Auto) 0.04 0.00-0.02 K/uL Sodium Level 130 136-145 mmol/L Potassium Level 4.1 3.5-5.1 mmol/L Chloride Level 98 98-107 mmol/L Carbon Dioxide Level 22 21-32 mmol/L Anion Gap 10.0 3-11 mmol/L Blood Urea Nitrogen 17 7-18 mg/dl Creatinine 0.94 0.60-1.20 mg/dl Est Creatinine Clear Calc Drug Dose 50.6 ml/min Estimated GFR () 68.8 Estimated GFR (Non- 59.3 BUN/Creatinine Ratio 17.5 10-20 Random Glucose 122 70-99 mg/dl Calcium Level 8.5 8.5-10.1 mg/dl Total Bilirubin 0.3 0.2-1 mg/dl Aspartate Amino Transf (AST/SGOT) 28 15-37 U/L Alanine Aminotransferase (ALT/SGPT) 26 12-78 U/L Alkaline Phosphatase 72 45-117 U/L Total Creatine Kinase 170 26-192 U/L Creatine Kinase MB 5.1 0.5-3.6 ng/ml Creatine Kinase MB Ratio 3.0 0-3.0 Troponin I 0.337 0-0.045 ng/ml Pro-B-Type Natriuretic Peptide 253 0-900 pg/ml Total Protein 7.3 6.4-8.2 gm/dl Albumin 3.6 3.4-5.0 gm/dl Globulin 3.7 2.5-4.0 gm/dl Albumin/Globulin Ratio 1.0 0.9-2 Test 01/31/18 06:43 01/31/18 07:45 01/31/18 11:53 01/31/18 15:52 Range/Units Bedside D-Dimer > 450 0-450 ng/mlFEU Influenza Type A Antigen Neg for Influ A NEG Influenza Type B Antigen Neg for Influ B NEG Troponin I 2.140 0-0.045 ng/ml Procalcitonin < 0.05 0-0.5 ng/ml Microbiology Results 01/31/18 Blood Culture, Received Pending 01/31/18 Blood Culture, Received Pending 01/31/18 MRSA DNA Surveillance Screen, Received Pending Diagnostic Radiology Please refer to HPI EKG Please refer to HPI Impression Assessment and Plan 77-year-old female admitted with progressive dyspnea on exertion: 1. Dyspnea: At this time the patient's history, physical exam, radiograph and serum studies do suggest an acute cardiac event. Should note that serum eosinophil levels are noted to rise with an acute myocardial event similar to the rhinitis that can occur with IgE levels and such an event. At this time I suggest we ask cardiology for their help in opinion. 2. Asthma: I suggest we discontinue methylprednisolone and guaifenesin at this time as I do not believe she is having an active asthma or COPD attack. I have asked for the patient's previous pulmonary function studies performed 4-5 years ago by her primary care physician. 3. Infection: Also we discontinue doxycycline at this time as there is no signs of active bacterial pneumonia.
[2018-01-31 18:54] LABS: INR 1.1 (0.9-1.1)
[2018-01-31 19:00] LABS: CALCIUM 8.9 mg/dl (8.5-10.1); CREATININE 1.22 mg/dl (0.60-1.20); POTASSIUM 3.5 mmol/L (3.5-5.1)
[2018-01-31 19:48] VITALS: PULSE 94; O2SAT 91
[2018-01-31] MEDS: SIMVASTATIN 10 MG TAB PO SCH (21:20)
[2018-01-31] MEDS: HEPARIN SOD 5000 UNIT/0.5 ML CARP SQ SCH (21:20)
[2018-01-31] MEDS: GUAIFENESIN 600 MG TABCR PO SCH (21:20)
[2018-01-31] MEDS: PANTOprazole SOD 40 MG TAB PO SCH (21:20)
[2018-01-31] MEDS ORDERED: POTASSIUM CHLORIDE 20 MEQ TABCR PO ONE (23:00)
[2018-01-31] MEDS ORDERED: MAGNESIUM OXIDE 400 MG TAB PO ONE (23:00)
[2018-02-01] VITALS (7 sets, daily range): BP systolic 102–142; BP diastolic 48–83; PULSE 77–119; TEMP 36.6–36.9; O2SAT 92–95
[2018-02-01] MEDS: LEVALBUTEROL 1.25MG/0.5ML NEB INH SCH ×2 (02:10→07:28)
[2018-02-01] MEDS: IPRATROPIUM BROMIDE NEB SOLN 0.02% 2.5 ML VIAL INH SCH ×2 (02:10→07:28)
[2018-02-01 06:00] LABS: BASO % 0.2 %; BASO ABS # 0.02 K/uL (0-0.2); EOS % 3.8 %; EOS ABS # 0.34 K/uL (0-0.5); HEMATOCRIT 38.3 % (37-47); IG# 0.02 K/uL (0.00-0.02); LYMPH % 21.8 %; LYMPH ABS # 1.95 K/uL (1.2-3.4); MEAN CELL VOLUME 89.9 fL (80-100); MEAN CORPUSCULAR HEMOGLOBIN 30.5 pg (25-34); MEAN CORPUSCULAR HGB CONC 33.9 g/dl (32-36); MEAN PLATELET VOLUME 9.7 fL (7.4-10.4); MONO % 13.5 %; MONO ABS # 1.21 K/uL (0.11-0.59); NEUT % 60.5 %; NEUT ABS # 5.41 K/uL (1.4-6.5); PLATELET COUNT 252 K/uL (130-400); RED CELL DISTRIBUTION WIDTH CV 12.9 % (11.5-14.5); WHITE BLOOD COUNT 8.95 K/uL (4.8-10.8)
[2018-02-01 06:46] LABS: CALCIUM 8.6 mg/dl (8.5-10.1); CREATININE 0.86 mg/dl (0.60-1.20); POTASSIUM 3.7 mmol/L (3.5-5.1)
[2018-02-01] MEDS ORDERED: LOSARTAN POTASSIUM 50 MG TAB PO SCH (09:00)
[2018-02-01] MEDS: GUAIFENESIN 600 MG TABCR PO SCH ×2 (09:00→20:14)
[2018-02-01] MEDS ORDERED: METOPROLOL SUCC 50MG EXT REL TAB PO SCH (09:00)
[2018-02-01] MEDS ORDERED: LEVOFLOXACIN / D5W 750 MG in PREMIXED IN D5W 150 ML IV SCH (09:15)
[2018-02-01] MEDS: PANTOprazole SOD 40 MG TAB PO SCH ×2 (09:45→20:15)
[2018-02-01] MEDS: HYDROCHLOROTHIAZIDE 25 MG TAB PO SCH (09:46)
[2018-02-01] MEDS: MAGNESIUM OXIDE 400 MG TAB PO SCH ×2 (09:47→20:16)
[2018-02-01] MEDS: HEPARIN SOD 5000 UNIT/0.5 ML CARP SQ SCH ×2 (09:59→20:17)
--- NOTE | 2018-02-01 13:06 | ECHOCARDIOGRAM REPORT ---
*NOTICE TO RECEIVING LIBERTARIAN AGENCY This information is strictly Confidential and protected under [place] law. [place] law prohibits you from making any further disclosure of this information unless further disclosure is expressly permitted by the written consent of the person to whom it pertains or is authorized by law. A general authorization for the release of medical or other information is not sufficient for this purpose. Hospital accepts no responsibility if the information is made available to any other person, INCLUDING THE PATIENT. Interpretation Summary * Name: NILAY MOSES Study Date: 02/01/2018 05:20 AM BP: 109/57 mmHg * Patient Location: [place]\S\E106\[id number]\1 HR: 87 * : 1940 (M/d/yyyy) Gender: Female Height: 63 in * Age: 77 yrs Ethnicity: CA Weight: 168 lb * Ordering Physician: Ivette Castillo * Referring Physician: Self, Referred * Performed By: Migdalia Rivera [facility] * * Reason For Study: CHF * BSA: 1.8 m2 * -- Conclusions -- * There is borderline concentric left ventricular hypertrophy. * Left ventricular systolic function is normal. Procedure Details * A complete two-dimensional transthoracic echocardiogram was performed (2D, M-mode, Doppler and color flow Doppler). Left Ventricle * The left ventricle is normal in size. * There is borderline concentric left ventricular hypertrophy. * Left ventricular systolic function is normal. * Ejection Fraction = 60-65%. * Normal diastolic function * The left ventricular wall motion is normal. Right Ventricle * The right ventricle is normal in size and function. Atria * The left atrial size is normal. * Right atrial size is normal. Mitral Valve * The mitral valve anatomy is normal. * Significant mitral regurgitation is absent. Tricuspid Valve * The tricuspid valve anatomy is normal. * Significant tricuspid regurgitation is absent. Aortic Valve * The aortic valve is normal in structure and function. * No hemodynamically significant valvular aortic stenosis. * There is no significant aortic regurgitation. Great Vessels * The aortic root is normal size. Pericardium/Pleural * There is no pericardial effusion. MMode 2D Measurements and Calculations IVSd 1.4 cm IVSs 1.4 cm LVIDd 3.6 cm LVIDs 2.3 cm LVPWd 1.2 cm LVPWs 1.3 cm IVS/LVPW 1.2 FS 35.8 % EDV(Teich) 52.7 ml ESV(Teich) 17.7 ml EF(Teich) 66.4 % EDV(cubed) 44.8 ml ESV(cubed) 11.8 ml EF(cubed) 73.6 % % IVS thick 0.60 % % LVPW thick 12.1 % LV mass(C)d 157.7 grams LV mass(C)dI 87.8 grams/m\S\2 LV mass(C)s 97.2 grams LV mass(C)sI 54.2 grams/m\S\2 SV(Teich) 35.0 ml SI(Teich) 19.5 ml/m\S\2 SV(cubed) 33.0 ml SI(cubed) 18.4 ml/m\S\2 Ao root diam 2.8 cm Ao root area 6.2 cm\S\2 LA dimension 3.8 cm LA/Ao 1.3 LVOT diam 2.0 cm LVOT area 3.0 cm\S\2 LVAd ap4 28.6 cm\S\2 LVLd ap4 7.9 cm EDV(MOD-sp4) 85.5 ml EDV(sp4-el) 87.9 ml LVAs ap4 16.7 cm\S\2 LVLs ap4 6.4 cm ESV(MOD-sp4) 36.6 ml ESV(sp4-el) 37.0 ml EF(MOD-sp4) 57.2 % EF(sp4-el) 57.9 % LVAd ap2 26.2 cm\S\2 LVLd ap2 7.7 cm EDV(MOD-sp2) 74.4 ml EDV(sp2-el) 75.8 ml LVAs ap2 17.1 cm\S\2 LVLs ap2 6.8 cm ESV(MOD-sp2) 35.3 ml ESV(sp2-el) 36.6 ml EF(MOD-sp2) 52.5 % EF(sp2-el) 51.7 % LVLd %diff -2.99 % EDV(MOD-bp) 81.2 ml LVLs %diff 5.7 % ESV(MOD-bp) 37.3 ml EF(MOD-bp) 54.1 % SV(MOD-sp4) 48.9 ml SI(MOD-sp4) 27.2 ml/m\S\2 SV(MOD-sp2) 39.0 ml SI(MOD-sp2) 21.7 ml/m\S\2 SV(MOD-bp) 43.9 ml SI(MOD-bp) 24.5 ml/m\S\2 SV(sp4-el) 50.9 ml SI(sp4-el) 28.3 ml/m\S\2 SV(sp2-el) 39.2 ml SI(sp2-el) 21.8 ml/m\S\2 Doppler Measurements and Calculations MV E max vivien 81.4 cm/sec MV A max vivien 53.4 cm/sec MV E/A 1.5 MV P1/2t max vivien 83.0 cm/sec MV P1/2t 81.1 msec MVA(P1/2t) 2.7 cm\S\2 MV dec slope 300.1 cm/sec\S\2 MV dec time 0.28 sec Ao V2 max 160.5 cm/sec Ao max PG 10.3 mmHg Ao max PG (full) 6.2 mmHg ANGEL(V,A) 1.9 cm\S\2 ANGEL(V,D) 1.9 cm\S\2 LV V1 max PG 4.1 mmHg LV V1 max 101.4 cm/sec PA V2 max 88.0 cm/sec PA max PG 3.1 mmHg
[2018-02-01] MEDS ORDERED: SODIUM CHLORIDE 0.65% NA SOLN 45 ML (OCEAN) PRN (13:15)
[2018-02-01] MEDS ORDERED: DOCUSATE SODIUM 100 MG CAP PO ONE (13:17)
[2018-02-01] MEDS ORDERED: THIAMINE HCL 100 MG TAB PO ONE (14:50)
--- NOTE | 2018-02-01 16:01 | Cardiology Consultation ---
Cardiology Consultation Date of Consultation: Feb 01, 2018. Requesting Physician: Carlitos Reason for Consultation: TAchycardia Pt evaluation today including: conversation w/ patient, physical exam, chart review, lab review, review of studies, review of inpatient medication list, conversation w/ attending History of Present Illness Patient is a 77-year-old woman without a known history of coronary disease who has been experiencing coughing. Patient apparently had a significant coughing spell which resulted in difficulty breathing and she was brought to [facility] for evaluation. She may have had a transient episode of hypoxia at that time. She was also noted to have a rapid heartbeat characterizes atrial fibrillation in route to the hospital. Patient states that she has had a chronic cough for a long time. This generally worse while lying down. It seem to improve with recent procedure involving her vocal cord but has now returned. She has an element of chronic dyspnea as well. This appears to be more noticeable with exertion. She feels that this is fairly stable and has been able to continue her routine exercise without new limitation. She participates with a computer technology trainer several times per week. This exercise does involve an element of a aerobic activity on a treadmill. She has not report exertional chest discomfort or chest pressure. She does report occasional exertional dyspnea. Once again, this is not appear to have changed significantly in the recent past. She is not currently aware of any palpitations. She states she is not generally aware of any racing heartbeats or fluttering. She does not have dizzy spells or lightheadedness. Normally she is ambulatory without any assistive devices. She reports some mild nasal congestion and dryness in her nose but has not been suffering from other symptoms recently. She denies any recent fevers or chills. She has some mild lower extremity edema on occasion which is not changed recently. Past Medical/Surgical History Ventricular tachycardia, this was 6 beats of VT noted during an exercise treadmill test quite remotely. Hyperlipidemia Hypertension Vocal cord dysfunction Past surgical history None Family History Heart Disease Lung Cancer MOTHER, Sudden Cardiac (In multiple male relatives - maternal and paternal side - before age 50 in male relatives) Premature coronary disease in several male family members Social History Smoking Status: Never Smoker History of Alcohol Use: No (history) Currently rn hemodialysis of a local [facility] Generally resides in [place] spending 1 week per month in [place]. Review of Systems Per HPI All Other Systems: Reviewed and Negative Allergies Coded Allergies: No Known Allergies (Unverified , 01/31/18) Medications Current Inpatient Medications Medications (Trade) Dose Ordered Sig/Kavita Route Start Time Stop Time Status Last Admin Dose Admin Ioversol (Optiray 320) 100 ml UD PRN IV 01/31/18 07:30 02/04/18 07:29 Heparin Sodium (Porcine) (Heparin Sq 5000 Unit/0.5ml) 5,000 unit Q12 SQ 01/31/18 21:00 03/02/18 20:59 02/01/18 09:59 5,000 UNIT Acetaminophen (Tylenol Tab) 650 mg Q4H PRN PO 01/31/18 08:30 03/02/18 08:29 Al Hydrox/Mg Hydrox/Simethicone (Maalox Max Susp) 15 ml Q4H PRN PO 01/31/18 08:30 03/02/18 08:29 Magnesium Hydroxide (Milk Of Magnesia Susp) 30 ml Q12H PRN PO 01/31/18 08:30 03/02/18 08:29 Ondansetron HCl (Zofran Inj) 4 mg Q6H PRN IV 01/31/18 08:30 03/02/18 08:29 Polyethylene (Miralax Powder Packet) 17 gm DAILY PRN PO 01/31/18 08:30 03/02/18 08:29 Levalbuterol (Xopenex 1.25MG/ 0.5ML Neb) 1.25 mg Q6R INH 01/31/18 15:00 03/02/18 14:59 Future Hold 02/01/18 07:28 1.25 MG Ipratropium [place] (Atrovent 0.02% 0.5MG/2.5ML Neb) 0.5 mg Q6R INH 01/31/18 15:00 03/02/18 14:59 Future Hold 02/01/18 07:28 0.5 MG Levalbuterol (Xopenex 1.25MG/ 3ML Neb) 1.25 mg Q2H PRN INH 01/31/18 09:15 03/02/18 09:14 Hydrocodone Bit/ Homatropine Methylb (Hycodan Syrup) 5 ml Q4H PRN PO 01/31/18 09:15 3/28/18 09:14 Lorazepam (Ativan Tab) 0.5 mg BID PRN PO 01/31/18 09:45 03/02/18 09:44 Losartan Potassium (coZAAR TAB) 50 mg DAILY PO 02/01/18 09:00 03/03/18 08:59 02/01/18 09:47 50 MG Metoprolol Succinate (Toprol Xl Tab) 50 mg DAILY PO 02/01/18 09:00 03/03/18 08:59 02/01/18 09:47 50 MG Simvastatin (Zocor Tab) 10 mg HS PO 01/31/18 21:00 03/02/18 20:59 01/31/18 21:20 10 MG Tramadol HCl (Ultram Tab) 50 mg Q6H PRN PO 01/31/18 09:45 03/02/18 09:44 Hydrochlorothiazide (Hydrochlorothiazide Tab) 12.5 mg DAILY PO 02/01/18 09:00 03/03/18 08:59 02/01/18 09:46 12.5 MG Guaifenesin (Mucinex Contr Rel Tab) 1,200 mg Q12 PO 01/31/18 21:00 03/02/18 20:59 01/31/18 21:20 1,200 MG Pantoprazole Sodium (Protonix Tab) 40 mg BID PO 01/31/18 21:00 02/04/18 20:59 02/01/18 09:45 40 MG Magnesium Oxide (Mag-Ox Tab) 400 mg BID PO 02/01/18 09:00 03/03/18 08:59 02/01/18 09:47 400 MG Sodium Chloride ([place] Nasal [place]) 2 sprays Q1H PRN NA 02/01/18 13:15 03/03/18 13:14 Docusate Sodium (coLACE CAP) 100 mg BID PO 02/01/18 21:00 03/03/18 20:59 Thiamine HCl (Vitamin B-1 Tab) 100 mg QAM PO 02/02/18 09:00 03/04/18 08:59 Folic Acid (Folvite Tab) 1 mg QAM PO 02/02/18 09:00 03/04/18 08:59 Physical Exam Vital Signs Past 12 Hours Date Time Temp Pulse Resp B/P (MAP) Pulse Ox O2 Delivery O2 Flow Rate FiO2 02/01/18 12:00 Room Air 02/01/18 12:00 36.8 79 20 102/60 (74) 93 Room Air 02/01/18 08:00 36.8 119 20 120/57 (78) 93 Room Air 02/01/18 08:00 Room Air 02/01/18 07:29 119 20 93 Room Air 02/01/18 04:00 Room Air 02/01/18 03:50 36.9 93 18 109/57 (74) 94 Room Air The patient is alert and oriented. Mood and affect appeared normal. He answered all questions appropriately. HEENT: Pupils are equal and reactive to light and accommodation. Extraocular movements are intact. The sclerae are anicteric. Neuro: Cranial nerves intact Neck: Patient's neck is supple. He has palpable carotid pulses bilaterally without bruits on auscultation. There is no evidence of jugular venous distention. The thyroid is not enlarged. Lungs: Clear to auscultation bilaterally. He has good air movement without use of accessory muscles. No rales wheezes or rhonchi. Cardiac: Heart demonstrates a regular rate and rhythm with occasional ectopy. Normal S1 and S2. No murmurs on examination. Pulses: The patient has palpable radial pulses bilaterally that are equal in intensity Extremities: There was no evidence of hypoperfusion. There is no cyanosis or clubbing. There is no edema. Skin: I did not appreciate any rashes on examination today. Data Laboratory Results: Last 24 Hours Test 01/31/18 18:32 02/01/18 05:45 02/01/18 08:48 Prothrombin Time 12.0 SECONDS Prothromb Time International Ratio 1.1 Sodium Level 129 mmol/L 132 mmol/L Potassium Level 3.5 mmol/L 3.7 mmol/L Chloride Level 91 mmol/L 97 mmol/L Carbon Dioxide Level 28 mmol/L 26 mmol/L Anion Gap 10.0 mmol/L 9.0 mmol/L Blood Urea Nitrogen 19 mg/dl 18 mg/dl Creatinine 1.22 mg/dl 0.86 mg/dl Est Creatinine Clear Calc Drug Dose 39.0 ml/min 55.3 ml/min Estimated GFR () 50.2 76.6 Estimated GFR (Non- 43.3 66.1 BUN/Creatinine Ratio 15.4 21.5 Random Glucose 151 mg/dl 115 mg/dl Calcium Level 8.9 mg/dl 8.6 mg/dl Magnesium Level 1.7 mg/dl 2.0 mg/dl Troponin I 1.810 ng/ml 0.613 ng/ml White Blood Count 8.95 K/uL Red Blood Count 4.26 M/uL Hemoglobin 13.0 g/dL Hematocrit 38.3 % Mean Corpuscular Volume 89.9 fL Mean Corpuscular Hemoglobin 30.5 pg Mean Corpuscular Hemoglobin Concent 33.9 g/dl Platelet Count 252 K/uL Mean Platelet Volume 9.7 fL Neutrophils (%) (Auto) 60.5 % Lymphocytes (%) (Auto) 21.8 % Monocytes (%) (Auto) 13.5 % Eosinophils (%) (Auto) 3.8 % Basophils (%) (Auto) 0.2 % Neutrophils # (Auto) 5.41 K/uL Lymphocytes # (Auto) 1.95 K/uL Monocytes # (Auto) 1.21 K/uL Eosinophils # (Auto) 0.34 K/uL Basophils # (Auto) 0.02 K/uL RDW Standard Deviation 42.0 fL RDW Coefficient of Variation 12.9 % Immature Granulocyte % (Auto) 0.2 % Immature Granulocyte # (Auto) 0.02 K/uL Thyroid Stimulating Hormone (TSH) 0.435 uIu/ml Imaging: Chest x-ray suggesting pulmonary vascular congestion. CT PE protocol did not demonstrate pulmonary embolus. Some mild esophageal thickening. Possibly some reactive paratracheal nodes EKG: Normal sinus rhythm with runs of an atrial tachycardia Telemetry reviewed: Frequent runs of atrial tachycardia Echocardiogram performed today revealed preserved LV systolic function without significant valvular abnormalities. Stress echocardiogram performed in 2011. No evidence of inducible ischemia. Essentially normal LV systolic function no significant valvular abnormalities. Assessment & Plan 1. Atrial arrhythmia: This was initially described as atrial fibrillation but is not actually atrial fibrillation. This is simply atrial ectopy, sometimes sustained. I think this is best characterizes an ectopic atrial tachycardia. She is not symptomatic. The rates are high and she does have fairly extended episodes at times. It is unclear how long she has had arrhythmias of this nature but this is likely not a new finding. I do not believe this has contributed to her current admission. There are several options for treating this arrhythmia. She is currently on metoprolol this dose could be increased. Alternatively, antiarrhythmic medications or even catheter based therapy could be employed. I think the most expedient way to address the rhythm problem is to simply increase her metoprolol dose to 75 milligrams daily. She does not require anticoagulation for this rhythm problem. Many patients with frequent atrial ectopy or extended runs of atrial ectopy will in fact experience atrial fibrillation at some point. Until this is documented I would not initiate anticoagulation. 2. NSTEMI: Patient does have elevated cardiac biomarkers. The mechanism of her elevation is unclear. She has not have overt chest pain or symptoms characteristic of an acute coronary syndrome. However she did have significant breathing difficulty and has had some dyspnea on exertion. She could have an element of fixed coronary disease. Her echocardiogram and EKG are normal. The elevations could be related to a transient period of hypoxia that was not well documented. However, the marker elevation is quite significant and I think with her symptoms of dyspnea it would be reasonable to perform coronary angiography. I did discuss this with the patient today. I discussed the risks benefits and alternatives and will plan on proceeding tomorrow. 3. Ventricular tachycardia: This diagnosis is carried in her record but seems to be related to a single episode which occurred many years ago. This involve 6 beats of ventricular arrhythmia. We have not seen any significant ventricular arrhythmias on her monitoring so far. She is not manifest symptoms of dizziness or syncope. She has normal LV systolic function. Will evaluate her for coronary artery disease tomorrow.
[2018-02-01] MEDS ORDERED: OXYMETAZOLINE HCL 0.05% NA SPR 15 ML BTL ONE (16:10)
[2018-02-01] MEDS ORDERED: DOCUSATE SODIUM 100 MG CAP ONE (16:17)
--- NOTE | 2018-02-01 16:18 | Hospitalist Progress Note ---
Hospitalist Progress Note Date of Service Feb 01, 2018. (Ivette Castillo, ANGELIQUE-C) Subjective Pt evaluation today including: conversation w/ patient, physical exam, chart review, lab review, review of studies, review of inpatient medication list Patient seen and evaluated. Reports feeling a lot better respiratory johnson. Not getting easily winded and having more forceful coughs. Is able to carry a conversation without dyspnea. States she is feeling a little more fatigued then her baseline and reports using a walker to help her stand up easier. States lately she has been sleeping her a chair due to significant coughing when laying flat but denies direct SOB with laying flat. Had a long discussion about her heart rhythms and possibility of atrial fibrillation. EKGs suggest more of a SVT as there are clear P waves in majority of leads...there is some irregularity which is likely from PACs as the conducted QRSs are rather regularly spaced. Would appreciate cardiologies input on this rhythm? Trops peaked at 2 and trended down which suggests type 2 [place]/demand ischemia. Echo is unremarkable. Possibility of small PEs in peripheral vessels that cant be seen on initial CTA? Constitutional: No fever, No chills ENT: + nasal symptoms, No sore throat Respiratory: + cough, + sputum, No shortness of breath Cardiovascular: No chest pain Abdomen: + constipation, No pain, No nausea, No vomiting, No diarrhea Musculoskeletal: No swelling, No calf pain Female : No dysuria Heme: No abnormal bleeding/bruising (Ivette Castillo, PA-C) Medications Current Inpatient Medications Medications (Trade) Dose Ordered Sig/Kavita Route Start Time Stop Time Status Last Admin Dose Admin Ioversol (Optiray 320) 100 ml UD PRN IV 01/31/18 07:30 02/04/18 07:29 Heparin Sodium (Porcine) (Heparin Sq 5000 Unit/0.5ml) 5,000 unit Q12 SQ 01/31/18 21:00 03/02/18 20:59 02/01/18 09:59 5,000 UNIT Acetaminophen (Tylenol Tab) 650 mg Q4H PRN PO 01/31/18 08:30 03/02/18 08:29 Al Hydrox/Mg Hydrox/Simethicone (Maalox Max Susp) 15 ml Q4H PRN PO 01/31/18 08:30 03/02/18 08:29 Magnesium Hydroxide (Milk Of Magnesia Susp) 30 ml Q12H PRN PO 01/31/18 08:30 03/02/18 08:29 Ondansetron HCl (Zofran Inj) 4 mg Q6H PRN IV 01/31/18 08:30 03/02/18 08:29 Polyethylene (Miralax Powder Packet) 17 gm DAILY PRN PO 01/31/18 08:30 03/02/18 08:29 Levalbuterol (Xopenex 1.25MG/ 0.5ML Neb) 1.25 mg Q6R INH 01/31/18 15:00 03/02/18 14:59 Future Hold 02/01/18 07:28 1.25 MG Ipratropium [place] (Atrovent 0.02% 0.5MG/2.5ML Neb) 0.5 mg Q6R INH 01/31/18 15:00 03/02/18 14:59 Future Hold 02/01/18 07:28 0.5 MG Levalbuterol (Xopenex 1.25MG/ 3ML Neb) 1.25 mg Q2H PRN INH 01/31/18 09:15 03/02/18 09:14 Hydrocodone Bit/ Homatropine Methylb (Hycodan Syrup) 5 ml Q4H PRN PO 01/31/18 09:15 02/14/18 09:14 Lorazepam (Ativan Tab) 0.5 mg BID PRN PO 01/31/18 09:45 03/02/18 09:44 Losartan Potassium (coZAAR TAB) 50 mg DAILY PO 02/01/18 09:00 03/03/18 08:59 02/01/18 09:47 50 MG Metoprolol Succinate (Toprol Xl Tab) 50 mg DAILY PO 02/01/18 09:00 03/03/18 08:59 02/01/18 09:47 50 MG Simvastatin (Zocor Tab) 10 mg HS PO 01/31/18 21:00 03/02/18 20:59 01/31/18 21:20 10 MG Tramadol HCl (Ultram Tab) 50 mg Q6H PRN PO 01/31/18 09:45 03/02/18 09:44 Hydrochlorothiazide (Hydrochlorothiazide Tab) 12.5 mg DAILY PO 02/01/18 09:00 03/03/18 08:59 02/01/18 09:46 12.5 MG Guaifenesin (Mucinex Contr Rel Tab) 1,200 mg Q12 PO 01/31/18 21:00 03/02/18 20:59 01/31/18 21:20 1,200 MG Pantoprazole Sodium (Protonix Tab) 40 mg BID PO 01/31/18 21:00 02/04/18 20:59 02/01/18 09:45 40 MG Magnesium Oxide (Mag-Ox Tab) 400 mg BID PO 02/01/18 09:00 03/03/18 08:59 02/01/18 09:47 400 MG Sodium Chloride ([place] Nasal [place]) 2 sprays Q1H PRN NA 02/01/18 13:15 03/03/18 13:14 Docusate Sodium (coLACE CAP) 100 mg BID PO 02/01/18 21:00 03/03/18 20:59 Thiamine HCl (Vitamin B-1 Tab) 100 mg QAM PO 02/02/18 09:00 03/04/18 08:59 Folic Acid (Folvite Tab) 1 mg QAM PO 02/02/18 09:00 03/04/18 08:59 (Ivette Castillo, SARA) Objective Vital Signs Date Time Temp Pulse Resp B/P (MAP) Pulse Ox O2 Delivery O2 Flow Rate FiO2 02/01/18 12:00 Room Air 02/01/18 12:00 36.8 79 20 102/60 (74) 93 Room Air 02/01/18 08:00 36.8 119 20 120/57 (78) 93 Room Air 02/01/18 08:00 Room Air 02/01/18 07:29 119 20 93 Room Air 02/01/18 04:00 Room Air 02/01/18 03:50 36.9 93 18 109/57 (74) 94 Room Air 02/01/18 02:10 88 20 92 Room Air 02/01/18 00:50 36.6 89 20 140/48 (78) 95 Room Air 02/01/18 00:01 Room Air 01/31/18 20:00 Room Air 01/31/18 19:48 94 20 91 Room Air 01/31/18 16:10 36.8 85 22 125/60 (81) 98 Nasal Cannula 4.0 01/31/18 16:00 95 Room Air (Ivette Castillo PA-C) Physical Exam General Appearance: WD/WN, no apparent distress Eyes: sclerae normal ENT: hearing grossly normal, pharynx normal Neck: supple, no JVD, trachea midline Respiratory/Chest: no respiratory distress, no accessory muscle use, + crackles (bases b/l), + wheezing (minimal scattered exp. wheeze), + pertinent finding ( improving air flow compared to previous exam) Cardiovascular: regular rate, rhythm, no gallop, no murmur Abdomen: normal bowel sounds, non tender, soft Extremities: + swelling (mild non-pitting edema b/l legs) Neurologic/Psychiatric: alert, oriented x 3 Skin: normal color (Ivette Castillo PA-C) Laboratory Results Last 24 Hours Test 01/31/18 18:32 02/01/18 05:45 02/01/18 08:48 Prothrombin Time 12.0 SECONDS Prothromb Time International Ratio 1.1 Sodium Level 129 mmol/L 132 mmol/L Potassium Level 3.5 mmol/L 3.7 mmol/L Chloride Level 91 mmol/L 97 mmol/L Carbon Dioxide Level 28 mmol/L 26 mmol/L Anion Gap 10.0 mmol/L 9.0 mmol/L Blood Urea Nitrogen 19 mg/dl 18 mg/dl Creatinine 1.22 mg/dl 0.86 mg/dl Est Creatinine Clear Calc Drug Dose 39.0 ml/min 55.3 ml/min Estimated GFR () 50.2 76.6 Estimated GFR (Non- 43.3 66.1 BUN/Creatinine Ratio 15.4 21.5 Random Glucose 151 mg/dl 115 mg/dl Calcium Level 8.9 mg/dl 8.6 mg/dl Magnesium Level 1.7 mg/dl 2.0 mg/dl Troponin I 1.810 ng/ml 0.613 ng/ml White Blood Count 8.95 K/uL Red Blood Count 4.26 M/uL Hemoglobin 13.0 g/dL Hematocrit 38.3 % Mean Corpuscular Volume 89.9 fL Mean Corpuscular Hemoglobin 30.5 pg Mean Corpuscular Hemoglobin Concent 33.9 g/dl Platelet Count 252 K/uL Mean Platelet Volume 9.7 fL Neutrophils (%) (Auto) 60.5 % Lymphocytes (%) (Auto) 21.8 % Monocytes (%) (Auto) 13.5 % Eosinophils (%) (Auto) 3.8 % Basophils (%) (Auto) 0.2 % Neutrophils # (Auto) 5.41 K/uL Lymphocytes # (Auto) 1.95 K/uL Monocytes # (Auto) 1.21 K/uL Eosinophils # (Auto) 0.34 K/uL Basophils # (Auto) 0.02 K/uL RDW Standard Deviation 42.0 fL RDW Coefficient of Variation 12.9 % Immature Granulocyte % (Auto) 0.2 % Immature Granulocyte # (Auto) 0.02 K/uL Thyroid Stimulating Hormone (TSH) 0.435 uIu/ml (Ivette Castillo, THIENC) Assessment and Plan Ms. Adame is a 77 y/o female with PMHx of HTN, HLD, Isolated Episode of Ventricular Tachycardia (Asymptomatic - 6 Beat), Benign Atrial Ectopy, and Possible Mild Asthma who presents to the ED c/o progressive cough x 1 month and worsening SOB starting last night. Acute Hypoxic Respiratory Failure 2/2 Bronchitis vs Asthma Exacerbation vs Atypical/Viral Etiology: IMPROVING - Question possibility of small PE in peripheral vessels that could not be seen on CTA given motion artifact? Does have a lot of rhinitis and clinically is improving - possible bronchitis or other bronchospasm? simple viral illness? - Reporting her progressive SOB improves with her PRN Symbicort that she used as an outpatient in the past - Echocardiogram reporting normal EF and no diastolic dysfunction - clinically continues to appear euvolemic - Hold on Abx and steroids at this time - Mucinex BID and Hycodan PRN; nebs PRN - Consult pulmonology Elevated Troponin - Type 2 [place]/Demand Ischemia vs NSTEMI: - Peaked at 2 and trended down - no chest pain - no ischemic findings on EKGs - likely from episodes of tachycardia/respiratory symptoms Possible Atrial Fibrillation with RVR vs Atrial Tach: - Not convinced this is directly A Fib as a lot of her irregularity is from thrown PACs - strips and EKGs appear more like SVT, there is evidence of P waves in multiple leads and a lot of the conducted QRSs are regularly spaced; appears to occ. 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 I agree w/ the jean baptiste components of her documentation. Pt feels better. Still with cough but no dyspnea. tele with a tach overnight; no a. fib or flutter. no chest pain. VSS no fever o2 sats wnl in RA gen - looks good HEENT - phonation is low but no hoarseness neck - no JVD heart - RRR, s1, s2 lungs - mild end-exp wheeze b/l, no rales abd - soft ext - trace edema b/l A/P: 1. acute hypoxic resp failure - resolved. etiology uncertain. Pulm/ cardiology consults pending. I do not believe she had or has acute CHF. Still suspect some element of bronchitis - probably viral induced. No obvious pneumonia on cxr/CT chest. Cont nebs. Consider prednisone course. 2. positive troponin - likely demand ischemia/type 2 [place] - HOWEVER - to receive heart cath in AM to r/o ischemic heart disease in light of risk factors. 3. tachycardia - a tach - no Rx - continue toprol xl. 4. ?h/o etoh abuse - thiamine, folic acid, MVI; no signs of etoh withdrawal at this time. 5. DVT proph - heparin BID. NPO for cath in AM Lloyd URBINA MD (Edouard Urbina MD)
--- NOTE | 2018-02-01 20:10 | Pulmonology Progress Note ---
Pulmonary Progress Note Date of Service Feb 01, 2018. Attending Dr. Fernandez Subjective Patient notes improvement in her overall respiratory status. Currently denies fever, chills, productive cough, pleurisy or classic cardiac chest pain. Objective Patient doing well sitting up in a chair showing no signs of respiratory insufficiency Vital signs: Stable on room air Respiratory: Clear to auscultation bilaterally Cardiac: S1-S2 irregular rhythm next 1 abdomen: Positive bowel sounds soft nontender Extremities no clubbing cyanosis or edema Influenza A and B antigen and PCR assays: Negative Echocardiogram 02/01/2018: Borderline LVH otherwise within normal limits CXR (01/31/18) pulmonary vascular congestion CTA (01/31/18) no signs of proximal pulmonary emboli Pulmonary function studies 10/09/2013 FEV1/FVC: 87 FEV1: 2.00/100% FVC: 2.30/81% RV: 2.09/108% T.53/95% RV/TLC: > 46 DLCO: 78% DLCO/VA: 118% Interpretation: Normal pulmonary function studies Peak flow meter 400 Assessment & Plan 77-year-old female admitted for acute shortness of breath with hypoxemia: 1. Shortness of breath/hypoxemia: Patient is doing well at this time and saturating in the low 90s on room air. She has had dramatic improvement but this saturation is notably different than the previously documented physician note from 10/23/2013 when she had room air pulse oximetry 97%. I was able to review her pulmonary function studies which are within normal limits at this time I am not certain of the patient's hypoxic etiology. The patient is to be brought to the laboratory mechanic helper tomorrow by Dr. Felix. I will also send off labs for Legionella as well as mycoplasma for further evaluation. Data Medications: Current Inpatient Medications Medications (Trade) Dose Ordered Sig/Kavita Route Start Time Stop Time Status Last Admin Dose Admin Ioversol (Optiray 320) 100 ml UD PRN IV 01/31/18 07:30 02/04/18 07:29 Heparin Sodium (Porcine) (Heparin Sq 5000 Unit/0.5ml) 5,000 unit Q12 SQ 01/31/18 21:00 03/02/18 20:59 02/01/18 09:59 5,000 UNIT Acetaminophen (Tylenol Tab) 650 mg Q4H PRN PO 01/31/18 08:30 03/02/18 08:29 Al Hydrox/Mg Hydrox/Simethicone (Maalox Max Susp) 15 ml Q4H PRN PO 01/31/18 08:30 03/02/18 08:29 Magnesium Hydroxide (Milk Of Magnesia Susp) 30 ml Q12H PRN PO 01/31/18 08:30 03/02/18 08:29 Ondansetron HCl (Zofran Inj) 4 mg Q6H PRN IV 01/31/18 08:30 03/02/18 08:29 Polyethylene (Miralax Powder Packet) 17 gm DAILY PRN PO 01/31/18 08:30 03/02/18 08:29 Levalbuterol (Xopenex 1.25MG/ 0.5ML Neb) 1.25 mg Q6R INH 01/31/18 15:00 03/02/18 14:59 Future Hold 02/01/18 07:28 1.25 MG Ipratropium Eucha (Atrovent 0.02% 0.5MG/2.5ML Neb) 0.5 mg Q6R INH 01/31/18 15:00 03/02/18 14:59 Future Hold 02/01/18 07:28 0.5 MG Levalbuterol (Xopenex 1.25MG/ 3ML Neb) 1.25 mg Q2H PRN INH 01/31/18 09:15 03/02/18 09:14 Hydrocodone Bit/ Homatropine Methylb (Hycodan Syrup) 5 ml Q4H PRN PO 01/31/18 09:15 02/14/18 09:14 Lorazepam (Ativan Tab) 0.5 mg BID PRN PO 01/31/18 09:45 03/02/18 09:44 Losartan Potassium (coZAAR TAB) 50 mg DAILY PO 02/01/18 09:00 03/03/18 08:59 Future Hold 02/01/18 09:47 50 MG Simvastatin (Zocor Tab) 10 mg HS PO 01/31/18 21:00 03/02/18 20:59 01/31/18 21:20 10 MG Tramadol HCl (Ultram Tab) 50 mg Q6H PRN PO 01/31/18 09:45 03/02/18 09:44 Hydrochlorothiazide (Hydrochlorothiazide Tab) 12.5 mg DAILY PO 02/01/18 09:00 03/03/18 08:59 02/01/18 09:46 12.5 MG Guaifenesin (Mucinex Contr Rel Tab) 1,200 mg Q12 PO 01/31/18 21:00 03/02/18 20:59 01/31/18 21:20 1,200 MG Pantoprazole Sodium (Protonix Tab) 40 mg BID PO 01/31/18 21:00 02/04/18 20:59 02/01/18 09:45 40 MG Magnesium Oxide (Mag-Ox Tab) 400 mg BID PO 02/01/18 09:00 03/03/18 08:59 02/01/18 09:47 400 MG Sodium Chloride ([place] Nasal [place]) 2 sprays Q1H PRN NA 02/01/18 13:15 03/03/18 13:14 Docusate Sodium (coLACE CAP) 100 mg BID PO 02/01/18 21:00 03/03/18 20:59 Thiamine HCl (Vitamin B-1 Tab) 100 mg QAM PO 02/02/18 09:00 03/04/18 08:59 Folic Acid (Folvite Tab) 1 mg QAM PO 02/02/18 09:00 03/04/18 08:59 Oxymetazoline HCl (Afrin 0.05% Nasal [place]) 2 sprays BID NA 02/01/18 21:00 02/04/18 20:59 Metoprolol Succinate (Toprol Xl Tab) 75 mg DAILY PO 02/02/18 09:00 03/03/18 08:59 I & O: 24-Hour Column 02/02/18 08:00 Intake Total 800 ml Output Total 100 ml Balance 700 ml Vital Signs: Date Time Temp Pulse Resp B/P (MAP) Pulse Ox O2 Delivery O2 Flow Rate FiO2 02/01/18 16:00 Room Air 02/01/18 12:00 Room Air 02/01/18 12:00 36.8 79 20 102/60 (74) 93 Room Air 02/01/18 08:00 36.8 119 20 120/57 (78) 93 Room Air 02/01/18 08:00 Room Air 02/01/18 07:29 119 20 93 Room Air 02/01/18 04:00 Room Air 02/01/18 03:50 36.9 93 18 109/57 (74) 94 Room Air 02/01/18 02:10 88 20 92 Room Air 02/01/18 00:50 36.6 89 20 140/48 (78) 95 Room Air 02/01/18 00:01 Room Air Laboratory Results: Last 24 Hours Test 02/01/18 05:45 02/01/18 08:48 White Blood Count 8.95 K/uL Red Blood Count 4.26 M/uL Hemoglobin 13.0 g/dL Hematocrit 38.3 % Mean Corpuscular Volume 89.9 fL Mean Corpuscular Hemoglobin 30.5 pg Mean Corpuscular Hemoglobin Concent 33.9 g/dl Platelet Count 252 K/uL Mean Platelet Volume 9.7 fL Neutrophils (%) (Auto) 60.5 % Lymphocytes (%) (Auto) 21.8 % Monocytes (%) (Auto) 13.5 % Eosinophils (%) (Auto) 3.8 % Basophils (%) (Auto) 0.2 % Neutrophils # (Auto) 5.41 K/uL Lymphocytes # (Auto) 1.95 K/uL Monocytes # (Auto) 1.21 K/uL Eosinophils # (Auto) 0.34 K/uL Basophils # (Auto) 0.02 K/uL RDW Standard Deviation 42.0 fL RDW Coefficient of Variation 12.9 % Immature Granulocyte % (Auto) 0.2 % Immature Granulocyte # (Auto) 0.02 K/uL Sodium Level 132 mmol/L Potassium Level 3.7 mmol/L Chloride Level 97 mmol/L Carbon Dioxide Level 26 mmol/L Anion Gap 9.0 mmol/L Blood Urea Nitrogen 18 mg/dl Creatinine 0.86 mg/dl Est Creatinine Clear Calc Drug Dose 55.3 ml/min Estimated GFR () 76.6 Estimated GFR (Non- 66.1 BUN/Creatinine Ratio 21.5 Random Glucose 115 mg/dl Calcium Level 8.6 mg/dl Magnesium Level 2.0 mg/dl Thyroid Stimulating Hormone (TSH) 0.435 uIu/ml Troponin I 0.613 ng/ml
[2018-02-01] MEDS: OXYMETAZOLINE HCL 0.05% NA SPR 15 ML BTL SCH (20:14)
[2018-02-01] MEDS: DOCUSATE SODIUM 100 MG CAP PO SCH (20:15)
[2018-02-01] MEDS: SIMVASTATIN 10 MG TAB PO SCH (20:15)
[2018-02-01] MEDS: HYDROCODONE/HOMATROPINE SYRUP 5MG/1.5MG 5ML UDP PO PRN (23:37)
[2018-02-02] VITALS (14 sets, daily range): BP systolic 105–131; BP diastolic 62–80; PULSE 8–127; TEMP 36.3–36.9; O2SAT 91–98
[2018-02-02 06:51] LABS: HEMATOCRIT 38.6 % (37-47); HEMOGLOBIN 13.5 g/dL (12.0-16.0); MEAN CELL VOLUME 90.2 fL (80-100); MEAN CORPUSCULAR HEMOGLOBIN 31.5 pg (25-34); MEAN PLATELET VOLUME 9.9 fL (7.4-10.4); PLATELET COUNT 271 K/uL (130-400); RED CELL DISTRIBUTION WIDTH CV 13.1 % (11.5-14.5); WHITE BLOOD COUNT 8.63 K/uL (4.8-10.8)
[2018-02-02] MEDS: HYDROCODONE/HOMATROPINE SYRUP 5MG/1.5MG 5ML UDP PO PRN ×2 (07:15→10:56)
[2018-02-02 07:26] LABS: CALCIUM 8.9 mg/dl (8.5-10.1); CREATININE 0.76 mg/dl (0.60-1.20); POTASSIUM 3.8 mmol/L (3.5-5.1)
[2018-02-02] MEDS ORDERED: HEPARIN SOD (PORCINE) 1000 UNIT/ML 10 ML VIAL ONE (08:38)
[2018-02-02] MEDS ORDERED: MIDAZOLAM HCL 1 MG/ML 2ML VIAL ONE (08:38)
[2018-02-02] MEDS ORDERED: FENTANYL CITRATE INJ 50 MCG/1 ML 2 ML VIAL ONE (08:38)
[2018-02-02] MEDS ORDERED: NiCARDipine HCL INJ 2.5 MG/ML 10 ML AMP ONE (08:38)
[2018-02-02] MEDS ORDERED: NITROGLYCERIN/D5W 100MCG/ML 20ML SYR ONE (08:40)
[2018-02-02] MEDS: OXYMETAZOLINE HCL 0.05% NA SPR 15 ML BTL SCH (09:00)
[2018-02-02] MEDS ORDERED: THIAMINE HCL 100 MG TAB PO SCH (09:00)
[2018-02-02] MEDS: HEPARIN SOD 5000 UNIT/0.5 ML CARP SQ SCH (09:00)
[2018-02-02] MEDS ORDERED: METOPROLOL SUCC 50MG EXT REL TAB PO SCH (09:00)
[2018-02-02] MEDS: GUAIFENESIN 600 MG TABCR PO SCH (09:00)
--- NOTE | 2018-02-02 09:20 | [facility] Operative Report ---
Operative Report Date of Service Feb 02, 2018. Operative Report Procedure performed: Left heart catheterization, selective coronary angiography Staff paper latcher: Robert Aguilera MD Indication: The patient is a 77-year-old woman without a known history of cardiac disease who presented to [facility] with acute dyspnea. She was noted to be hypoxic. She had had symptoms of exertional dyspnea in the past and had elevated cardiac biomarkers on admission. Based on the symptoms and objective findings she was advised undergo coronary angiography. Procedure detail: The patient was informed of the risks benefits and alternatives to the intended procedure. She understood such and wished to proceed. She was brought to the cardiac catheterization suite in a fasting state. Conscious sedation was administered per protocol the patient was monitored electrocardiographically throughout today's procedure. The right radial area was prepped and draped in usual fashion. The right radial artery was then accessed using Seldinger technique. A 5 sheath was placed over guidewires at this site used to facilitate passage of the cardiac catheters for selective coronary angiography and left heart catheterization. Images were taken in multiple orthogonal views prior to removal of the catheters and sheath. Hemostasis was achieved at the access site using manual pressure. The patient tolerated the procedure well. There were no immediate complications. Equipment used: Five Russian TrapEase 3.5 Five Russian JL4 Findings: Hemodynamics: Opening aortic pressure was 103/58. Left ventricular pressure is 123 over 0. Left ventricular end-diastolic pressure was 4. Closing aortic pressure is 120/52 Coronary angiography: Left main: Left main was short and essentially trifurcate into a LAD small ramus intermedius and left circumflex system Lad: Left anterior descending was free of angiographic disease Left circumflex: Left circumflex was a codominant vessel which was free of angiographically significant disease Right coronary artery: Right coronary did not have any obstructive disease. Impression: Normal coronary arteries without evidence of obstructive coronary disease Normal left ventricular pressures I attest to the content of the Intraoperative Record and any orders documented therein. Any exceptions are noted below.
[2018-02-02] MEDS: MAGNESIUM OXIDE 400 MG TAB PO SCH (10:58)
[2018-02-02] MEDS: HYDROCHLOROTHIAZIDE 25 MG TAB PO SCH (10:58)
[2018-02-02] MEDS: DOCUSATE SODIUM 100 MG CAP PO SCH (10:58)
[2018-02-02] MEDS: PANTOprazole SOD 40 MG TAB PO SCH (10:59)
[2018-02-02] MEDS ORDERED: LORAZEPAM 0.5 MG TAB PO PRN (12:00)
[2018-02-02] MEDS ORDERED: PRED10TA PO (12:38)
[2018-02-02] MEDS ORDERED: METO-217 PO (12:38)
[2018-02-02] MEDS ORDERED: FLV1 PO (12:38)
[2018-02-02] MEDS ORDERED: CLC100 PO (12:38)
[2018-02-02] MEDS ORDERED: HYCUDL5 PO (12:38)
[2018-02-02] MEDS ORDERED: PRT40 PO (12:38)
[2018-02-02] MEDS ORDERED: THM100 PO (12:38)
[2018-02-02] MEDS ORDERED: LEVO1TAB34 PO (13:40)
[2018-02-02] MEDS ORDERED: PRVHFAIN INH (13:40)
--- NOTE | 2018-02-02 16:06 | Discharge Instructions ---
Discharge Instructions Date of Service Feb 02, 2018. Admission Reason for Admission: Acute Respiratory Failure With Hypoxia, Left Heart Discharge Discharge Diagnosis / Problem: Bronchitis/Bronchospasm Discharge Goals Goal(s): Decrease discomfort, Improve function, Increase independence Activity Recommendations Activity Limitations: per Instructions/Follow-up section Lifting Limitations: no more than 5 pounds (on right arm only x 7 days) Exercise/Sports Limitations: gradually increase as tolerated Shower/Bathe: no limitations . Instructions / Follow-Up Instructions / Follow-Up Bronchitis/Bronchospasm: - It appears that you have a bronchitis (inflammation of the lungs) this can cause a lot of coughing and wheezing. Thankfully there is no pneumonia or blood clots in the lungs. - You will be treated with Levaquin one tablet daily for 7 days. This is to cover for any early pneumonia or other respiratory infection. - Will also use Prednisone (this is a steroid to calm the inflammation in the lungs) You will be on a taper as follows: -- 40 mg times 2 days then 30 mg times 2 days then 20 mg times 2 days then 10 mg x 2 days. Start this on 02/03 as you have steroids today in the hospital - Will give you an albuterol inhaler. This is to use just as needed while you are overcoming bronchitis. If you feel short of breath or are wheezy, take 2 puffs up to 4 times a day just if needed. Cardiac: - Thankfully this is not a cardiac/heart problem. Your catheterization shows clean vessels of the heart which is great. Your echo (ultrasound of the heart) shows good pumping action and no signs of heart failure - Your cardiac markers did bump up when you first came into the hospital but are trending back down to normal. This may have been from your extreme shortness of breath or a very small heart attack. However your heart looks great on imaging so no damage is seen if this was a small heart attack. Fast Heart Rates: - You have a tendency to have rhythms that are originating from the top of the heart that is not the "natural pacemaker". These rhythms come from what is called atrial ectopy. This has been documented even back when you followed with Dr. Hampton. This is not atrial fibrillation but could put you at risk for this in the future. Your family doctor may want to do a holter monitor to monitor your rhythms. - To control the heart rhythm we increased your Metoprolol to 75 mg daily. - Since you have such good blood pressures, we discontinued your Losartan. You may continue your HCTZ 12.5 mg daily. Heart Burn: - On your imaging your esophagus has inflammation which is likely from acid reflux or heartburn. Sometimes the only symptom is a cough. Given that you cough a lot when you lay down this may actually be this acid reflux. - Recommend to continue Protonix 40 mg twice a day for 14 days. Your family doctor may want to put you on this daily assisted if this helps. - Recommend to have a referral to a GI doctor when you get back to [place] to maybe do a scope and look at your esophagus more. - Recommend to sit upright when eating and at least 30 minutes after eating to prevent this. Avoid a lot of caffeine, chocolate, spicy foods, or fatty foods as they can make acid reflux worse. Current Hospital Diet Patient's current hospital diet: Regular Diet Discharge Diet Recommended Diet: Regular Diet Pending Studies Studies pending at discharge: no Medical Emergencies . Who to Call and When: Medical Emergencies: If at any time you feel your situation is an emergency, please call 911 immediately. . Non-Emergent Contact Non-Emergency issues call your: Primary Care Provider Call Non-Emergent contact if: you have a fever, your pain is concerning you, you have any medication questions . . "Provider Documentation" section prepared by Ivette Castillo. .
--- NOTE | 2018-02-02 20:53 | Discharge Summary ---
Discharge Summary Date of Service Feb 02, 2018. Discharge Summary Admission Date: Jan 31, 2018 at 09:10 Discharge Date: Feb 02, 2018 Discharge Disposition: Home Principal Diagnosis: Acute Hypoxic Respiratory Failure 2/2 Bronchitis Problems/Secondary Diagnoses: 1. HTN 2. HLD 3. Isolated Episode of VT (Asymptomatic - 6 Beats) 4. Benign Atrial Ectopy 5. Possible Asthma 6. Vocal Cord Atrophy S/P Injections x 2 7. Retinal Detachment Repair Procedures: (CHEST FOR PE) ANGIO WITH FINDINGS: Somewhat limited exam due to patient respiratory motion. There are vasculature is not appreciated. Main or central pulmonary arterial vasculature enhances appropriately. There are no significant central filling defects. Somewhat distended air-filled esophagus without and with a moderately thickened wall. No major mediastinal or hilar adenopathy. Several small reactive nodes throughout. Moderate bibasilar atelectatic and/or infiltrative change. Moderate generalized degenerative change of the thoracic spine. No compression deformity. IMPRESSION: 1. Study is negative for major pulmonary embolus 2. Nondiagnostic evaluation of the peripheral arterial vasculature due to respiratory motion artifact. ECHOCARDIOGRAM: -- Conclusions -- * There is borderline concentric left ventricular hypertrophy. * Left ventricular systolic function is normal. HEART CATHETERIZATION: Impression: Normal coronary arteries without evidence of obstructive coronary disease Normal left ventricular pressures I attest to the content of the Intraoperative Record and any orders documented therein. Any exceptions are noted below. Consultations: 1. Pulmonology 2. Cardiology Medication Reconciliation New Medications: Albuterol (Ventolin Hfa) 60 Puffs/5400 Mcg Aers 2 PUFFS INH QID PRN for SOB/Wheezing for 30 Days, #1 INHALER Levofloxacin (Levaquin) 500 Mg Tab 1 TAB PO DAILY for 7 Days, #7 TAB Prednisone Tab (Prednisone) 10 Mg Tab 10 MG PO UD, #20 TAB Take 40 mg daily x 2 days then 30 mg daily x 2 days then 20 mg daily x 2 days then 10 mg daily x 2 days Docusate Sodium (Docusate Sodium) 100 Mg Cap 100 MG PO BID for 7 Days, #14 CAP Folic Acid (Folic Acid) 1 Mg Tab 1 MG PO QAM for 30 Days, #30 TAB Hydrocodone/Homatropine (Hydromet 5-1.5 mg/5Ml) 5 Ml/Cup Syrp 5 ML PO Q4H PRN for Cough for 3 Days, #90 ML Pantoprazole (Pantoprazole Sodium) 40 Mg Tab 40 MG PO BID for 14 Days, #28 TAB Thiamine HCl (Vitamin B-1) 100 Mg Tab 100 MG PO QAM for 30 Days, #30 TAB Changed Medications: Metoprolol Succinate (Toprol Xl) 50 Mg Tabcr 75 MG PO DAILY for 30 Days, #45 TAB (Changed from: 50 MG; 30) Continued Medications: Budesonide/Formoterol Fumarate (Symbicort 160-4.5 Mcg/Act) 60 Puffs/Inhaler Aero 2 PUFFS INH BID PRN for SOB/Wheezing Fluticasone Propionate (Nasal) (Flonase Allergy Relief) 50 Mcg/Act Spr Hydrochlorothiazide (Hydrochlorothiazide) 12.5 Mg Tab 1 TAB PO DAILY, TAB 3 Refills Lorazepam (Ativan) 0.5 Mg Tab 0.5 MG PO BID PRN for Anxiety, TAB Simvastatin (Zocor) 10 Mg Tab 1 TAB PO HS for 30 Days, #30 TAB 5 Refills Tramadol (Ultram) 50 Mg Tab 50 MG PO Q6 PRN for Pain, TAB Discontinued Medications: Losartan Potassium (Cozaar) 50 Mg Tab 1 TAB PO DAILY for 30 Days, #30 TAB 5 Refills Discharge Exam Review of Systems: Constitutional: No fever, No chills ENT: + nasal symptoms, No sore throat, No trouble swallowing Respiratory: + cough, No sputum, No dyspnea on exertion, No dyspnea at rest Cardiovascular: No chest pain, No palpitations Abdomen: No pain, No nausea, No vomiting, No diarrhea, No constipation Musculoskeletal: No swelling, No calf pain Genitourinary - Female: No dysuria Hematologic / Lymphatic: No abnormal bleeding/bruising Integumentary: No rash Physical Exam: General Appearance: WD/WN, no apparent distress Eyes: sclerae normal ENT: hearing grossly normal Neck: supple, no JVD, trachea midline Respiratory/Chest: lungs clear, normal breath sounds, no respiratory distress, no accessory muscle use Cardiovascular: regular rate, rhythm, no gallop, no murmur Abdomen / GI: normal bowel sounds, non tender, soft Extremities: no pedal edema Neurologic/Psychiatric: alert, oriented x 3 Skin: normal color, warm/dry Hospital Course ADMISSION: Ms. Adame is a 77 y/o female with PMHx of HTN, HLD, Isolated Episode of Ventricular Tachycardia (Asymptomatic - 6 Beat), Benign Atrial Ectopy, and Possible Mild Asthma who presents to the ED c/o progressive cough x 1 month and worsening SOB starting last night. Patient resides in [place] and is here on business. 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 However, she states this coughing does not appear similar to her chronic cough. She stated initially the cough was minimally productive of sputum however is largely dry. She states she was told she may have asthma in the past but later someone said she did not. She does have Symbicort that she takes as needed when traveling in high altitude places but denies utilizing a rescue inhaler. She has not used her Symbicort for the symptoms. She reports, she was walking from the living room to the kitchen late last night and developed shortness of breath and is experiencing coughing attacks. She states it feels as if there is a blockage as she is inhaling. She denies chest pain or pleuritic chest pain. She states prior to arrival of EMS, she would only be able to speak 1-2 words without significant shortness of breath and coughing. At this time she is able to have a full conversation but still gets dyspneic with minimal exertion. She denies shortness of breath at rest after treatment in the ED. In the ambulance , she was treated with a DuoNeb treatment and converted to atrial fibrillation with RVR and was given 10 mg Cardizem and quickly converted to NSR. She denies a personal history of cardiac disease and. Does not think she has ever been diagnosed with heart failure. She does report family history of coronary artery disease and sudden cardiac only in male relatives on both maternal and paternal sides. She is not aware of specific diagnoses of any cardiomyopathies from this. In the ED, patient was hypoxic on room air with improvement with supplemental O2. She is remained in NSR and tolerated Xopenex nebulizers. She is afebrile without leukocytosis. Differential reveals high levels of eosinophilia. She was treated with Lasix 40 mg 1 dose and is producing urine. Zosyn and levofloxacin initiated. HOSPITAL COURSE: Ms. Adame is a 77 y/o female with PMHx of HTN, HLD, Isolated Episode of Ventricular Tachycardia (Asymptomatic - 6 Beat), Benign Atrial Ectopy, and Possible Mild Asthma who presents to the ED c/o progressive cough x 1 month and worsening SOB starting last night. Acute Hypoxic Respiratory Failure 2/2 Bronchitis vs Atypical/Viral Etiology: IMPROVING - Question possibility of small PE in peripheral vessels that could not be seen on CTA given motion artifact however has significantly improved with treatment of steroids/nebs? Does have a lot of rhinitis- possible bronchitis or other bronchospasm? simple viral illness? - Echocardiogram reporting normal EF and no diastolic dysfunction - clinically continues to appear euvolemic - Pulmonology was concerned this was mostly cardiac however she underwent heart catheterization on 02/02 with clean vessels - Prednisone taper and Levaquin 750 mg daily x 7 days; Hycodan PRN; Gave an Rx for an Albuterol inhaler to use PRN for SOB/Wheezing Elevated Troponin - Type 2 NH/Demand Ischemia vs NSTEMI: - Peaked at 2 and trended down - no chest pain - no ischemic findings on EKGs - likely from episodes of tachycardia/respiratory symptoms; heart catheterization was clean - no clear etiology other than the hypoxia may explain this Possible Atrial Fibrillation with RVR vs Atrial Tach: - Not convinced that some of her rhythms were A Fib as a lot of her irregularity is from thrown PACs - strips and EKGs appear more like SVT, there is evidence of P waves in multiple leads and a lot of the conducted QRSs are regularly spaced; appears to occ. have 2 P waves which may be intermittent flutter vs her atrial ectopy - Cardiology followed - agree that they do not see atrial fibrillation but more of an atrial ectopy but she would be at increased risk for this in the future - Increased her Toprol XL to 75 mg daily to help control tachycardia as she can easily go into 140s but largely non-sustained; may benefit from Holter vs Event Monitor as outpatient Mild Esophageal Wall Thickening: - Given her symptoms of coughing when laying down and this chronic non- productive cough - possibility this is GERD related? - Gave Rx for Protonix 40 mg BID x 14 days and may need to continue this indefinitely; Recommend outpatient GI referral to possibly consider scope for further evaluation of the esophagus H/O Asymptomatic VT/Benign Atrial Ectopy/HTN: - Could possibly increase her BB with removal of one of her other agents to better control HR and BP - Discontinued her Losartan 50 mg daily due to increasing her Toprol XL; Continued HCTZ 12.5 mg daily as she does have some mild edema in lower legs and this may help with mild diuresis HLD: - Simvastatin 10 mg daily Code Status: FULL RESUSCITATION Disposition: - Recommend possible outpatient Holter vs Event Monitor - Recommend GI referral for possible GERD/reflux - esophageal thickening on imaging - Recommend she see her PCP in next 5-7 days Total Time Spent: Greater than 30 minutes This includes examination of the patient, discharge planning, medication reconciliation, and communication with other providers. Discharge Instructions Please refer to the electronic Patient Visit Report (Discharge Instructions) for additional information. Additional Copies To Dr. Víctor James
== END 2018-02-02 18:19 | disposition home or self-care (01) | DRG 280 ==
LOC: EDBD 05:57 → C.EDA 05:58 → C.MSICU 09:10 → ENRESERV 11:45 → C.2T 02-01 19:22
PROVIDERS: ADMIT Internal Medicine; ATTEND Internal Medicine
PROC: B211YZZ Fluoroscopy of Multiple Coronary Arteries using Other Contrast (ICD-10-PCS; principal; 2018-02-02 08:42)
PROC: 4A023N7 Measurement of Cardiac Sampling and Pressure, Left Heart, Percutaneous Approach (ICD-10-PCS; principal; 2018-02-02 08:42)
DX: I21.A1 Myocardial infarction type 2 (principal); J96.01 Acute respiratory failure with hypoxia; J45.901 Unspecified asthma with (acute) exacerbation; I47.2 Ventricular tachycardia; E87.1 Hypo-osmolality and hyponatremia; I10 Essential (primary) hypertension; E78.5 Hyperlipidemia, unspecified; I48.91 Unspecified atrial fibrillation; D72.1 Eosinophilia; J38.01 Paralysis of vocal cords and larynx, unilateral; Z79.82 Long term (current) use of aspirin; Z82.49 Family history of ischemic heart disease and other diseases of the circulatory system; Z80.1 Family history of malignant neoplasm of trachea, bronchus and lung

== ENCOUNTER 2022-10-24 00:45 | Observation (INO) ==
[2022-10-24] MEDS ORDERED: METOPROLOL TARTRATE 1 MG/ML VIAL IV STA ×2 (01:47→07:22)
[2022-10-24] MEDS: SODIUM CHLORIDE 0.9% 1000ML 1,000 ML IV SCH ×2 (02:27→09:35)
--- NOTE | 2022-10-24 02:28 | Emergency Department Note ---
History of Present Illness General Chief complaint: Chest Pain Stated complaint: CHEST PAIN-FALL,TROUBLE BREATHING Time Seen by Provider: 10/24/22 01:09 Source: patient Mode of arrival: ambulatory Limitations: no limitations History of Present Illness Provider complaint: Chest pain, palpitations, fall Maximum Pain Intensity: 2 This is an 82-year-old female who presents due to concern for palpitations, fall, and chest pain this evening. Patient states her apple watch told her heart was irregular and that she may have atrial fibrillation. Patient states she has had this several times before, no obvious pattern or trigger to them. She has previously seen cardiology however she states that was several years ago. Patient did recently fly to the area on Monday. 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 Patient denies any recent fevers, chills, or URI symptoms. Patient states following a multi course meal with wine paring's this evening she did not feel well around bedtime. She went to lay down and began to feel nauseated. When she got up to go to the bathroom trying to find a Tums she states she felt off balance and fell. She denies striking her head or losing consciousness. She states she was able to get back into bed and lay down and felt a sense of irregular palpitations and then developed central chest pain. She states pain is worse with taking a deep breath. She denies any concern for trauma or injury from the fall stating because she was not feeling well she was slowly lowering herself down and fell forward onto her abdomen onto a carpeted surface. Patient denies any recent change in medications. She does not use any antiplatelet or anticoagulation therapy. Home Medications Medication Instructions Recorded Confirmed Type calcium carbonate 600 mg-vitamin 1 tab PO DAILY 10/24/22 10/24/22 History D3 10 mcg (400 unit) tablet (Calcium 600 + D(3)) hydrochlorothiazide 12.5 mg tablet 12.5 mg PO QAM 10/24/22 10/24/22 History losartan 100 mg tablet 100 mg PO DAILY 10/24/22 10/24/22 History metoprolol succinate 50 mg 50 mg PO DAILY 10/24/22 10/24/22 History tablet,extended release 24 hr simvastatin 10 mg tablet 10 mg PO HS 10/24/22 10/24/22 History Allergies Allergy/AdvReac Type Severity Reaction Status Date / Time No Known Allergies Allergy Unverified 01/31/18 06:44 Past Med/Surg History Medical History Hyperlipidemia Hypertension Paroxysmal atrial fibrillation Surgical History H/O eye surgery Retinal detachment repair Family History Other Family history non-contributory Social History Smoking Status: Never smoker Hx Alcohol Use: Yes Alcohol type: wine and hard liquor Hx Substance Use: No Preferred Language: Guatemalan Communication Ability: Effective [facility]irm[facility] Attendant Required: No Beliefs That Will Affect Care: None Current Living Situation: Alone Other Information That Helps Us Care for You: No Feels Safe at Home: Yes Safety Concerns: Feels Safe At This Time Assistive Devices: Glasses Assistive Devices Comment: glasses for driving Review of Systems A total of 10 systems reviewed and were otherwise negative All systems reviewed & are unremarkable except as noted in HPI & below Physical Exam Vital Signs Vital Signs - 24 hr 10/24/22 00:47 10/24/22 02:26 10/24/22 03:01 Temperature 35.7 C L Temperature Source Temporal Artery Scan Pulse Rate 102 H 109 H 77 Pulse Rate from SpO2 Sensor Respiratory Rate 20 21 Respiratory Effort / Characteristics Non-Labored Spontaneous Respiratory Depth Normal Blood Pressure 141/77 H 148/106 H 121/70 Blood Pressure Mean 98 87 Pulse Oximetry 99 97 Oxygen Delivery Method Room Air Room Air Sepsis New/Unexplained Change in Mental Status N/A Sepsis Action Taken by Nursing No Action Required 10/24/22 03:30 10/24/22 04:48 10/24/22 05:00 Temperature Temperature Source Pulse Rate 71 86 79 Pulse Rate from SpO2 Sensor 98 H 71 Respiratory Rate 16 20 17 Respiratory Effort / Characteristics Respiratory Depth Blood Pressure 139/83 131/84 130/83 Blood Pressure Mean 101 99 98 Pulse Oximetry 95 94 97 Oxygen Delivery Method Room Air Room Air Room Air Sepsis New/Unexplained Change in Mental Status Sepsis Action Taken by Nursing GENERAL: alert, well appearing, well nourished, no distress, non-toxic HEAD: nc/at EYE EXAM: normal conjunctiva, PERRL and EOM's grossly intact, no nystagmus OROPHARYNX: no exudate, no erythema, lips, buccal mucosa, and tongue normal and mucous membranes are moist NECK: supple, no nuchal rigidity, no adenopathy, non-tender LUNGS: Clear to auscultation. Normal chest wall mechanics, no w/r/r CHEST WALL: No crepitus, evolving contusion/abrasion noted to the left lateral ribs inferior to the left breast HEART: no murmurs, S1 normal and S2 normal ABDOMEN: abdomen soft, non-tender, normo-active bowel sounds, no masses, no rebound or guarding. BACK: Back is symmetrical on inspection and there is no deformity, no midline tenderness, no CVA tenderness. SKIN: no rashes and no bruising UPPER EXTREMITIES: upper extremities are grossly normal. FROM, nml pulses b/l. LOWER EXTREMITIES: No pitting edema. FROM, nml pulses b/l. NEURO EXAM: Normal sensorium, cranial nerves II-XII grossly intact, normal speech, no gross weakness of arms, no gross weakness of legs. Gross sensation intact. Course Course 031: Patient updated on results and need for CT imaging. Heart rate improved after IV metoprolol given, heart rate still atrial fibrillation but in the 60s and 70s. Administered Medications Apixaban (Apixaban 5 Mg Tablet) 5 mg PO BID [facility] Stop: 11/23/22 20:59 Last Admin: 10/25/22 08:12 Dose: 5 mg Documented By: Admin: 10/24/22 20:23 Dose: 5 mg Documented By: KRISTI Docusate Sodium (Docusate Sodium 100 Mg Cap) 100 mg PO BID [facility] Stop: 11/23/22 16:44 Last Admin: 10/25/22 08:15 Dose: 100 mg Documented By: Admin: 10/24/22 17:08 Dose: 100 mg Documented By: DONN Folic Acid (Folic Acid 1 Mg Tab) 1 mg PO QAM [facility] Stop: 11/23/22 10:14 Last Admin: 10/25/22 08:15 Dose: 1 mg Documented By: Admin: 10/24/22 11:01 Dose: 1 mg Documented By: ROWENA Losartan Potassium (Losartan Potassium 50 Mg Tab) 100 mg PO DAILY [facility] Stop: 11/24/22 08:59 Last Admin: 10/25/22 08:14 Dose: 100 mg Documented By: LINDA Metoprolol Succinate (Metoprolol Succ 50mg Ext Rel Tab) 75 mg PO DAILY [facility] Stop: 11/24/22 08:59 Last Admin: 10/25/22 08:15 Dose: 75 mg Documented By: LINDA Oxycodone HCl (Oxycodone Hcl Ir 5 Mg Tab (Immediate Release)) 5 mg PO Q6H PRN PRN Reason: moderate-severe pain Stop: 11/07/22 16:42 Last Admin: 10/25/22 08:12 Dose: 5 mg Documented By: Admin: 10/24/22 23:25 Dose: 5 mg Documented By: Admin: 10/24/22 17:09 Dose: 5 mg Documented By: DONN Polyethylene Glycol (Polyethylene (Miralax) 17 Gm Pack) 17 gm PO DAILY PRN PRN Reason: Constipation Stop: 11/23/22 16:43 Last Admin: 10/24/22 20:24 Dose: 17 gm Documented By: KRISTI Simvastatin (Simvastatin 10 Mg Tab) 10 mg PO HS FAM Stop: 11/23/22 20:59 Last Admin: 10/24/22 20:23 Dose: 10 mg Documented By: KRISTI Thiamine HCl (Thiamine Hcl 100 Mg Tab) 100 mg PO QAM [facility] Stop: 11/23/22 10:14 Last Admin: 10/25/22 08:14 Dose: 100 mg Documented By: Admin: 10/24/22 11:01 Dose: 100 mg Documented By: ROWENA Discontinued Medications Apixaban (Apixaban 5 Mg Tablet) 5 mg PO ONE ONE Stop: 10/24/22 09:16 Last Admin: 10/24/22 09:35 Dose: 5 mg Documented By: ROWENA Sodium Chloride (Nss 1000ml) 1,000 mls @ 125 mls/hr IV .Q8H FAM Stop: 11/23/22 01:59 Last Infusion: 10/24/22 12:03 Dose: 0 mls/hr Documented By: Admin: 10/24/22 09:35 Dose: 125 mls/hr Documented By: Infusion: 10/24/22 09:35 Dose: 125 mls/hr Documented By: Admin: 10/24/22 02:27 Dose: 125 mls/hr Documented By: MOLLY Potassium Chloride (K Kaushal / Wtr) 10 meq in 100 mls @ 100 mls/hr IV ONE ONE; Protocol Stop: 10/24/22 09:59 Last Infusion: 10/24/22 11:58 Dose: 0 mls/hr Documented By: Admin: 10/24/22 09:35 Dose: 100 mls/hr Documented By: ROWENA Magnesium Sulfate/Dextrose (Magnesium Sulfate / D5w) 1 gm in 100 mls @ 50 mls/hr IV ONE ONE Stop: 10/24/22 22:44 Last Infusion: 10/24/22 23:21 Dose: 0 mls/hr Documented By: Admin: 10/24/22 21:16 Dose: 50 mls/hr Documented By: KRISTI Ioversol (Optiray 320 500ml) 125 ml IV ONCE ONE Stop: 10/24/22 04:33 Last Admin: 10/24/22 04:33 Dose: 105 ml Documented By: GER Metoprolol Succinate (Metoprolol Succ 25mg Ext Rel Tab) 75 mg PO ONE ONE Stop: 10/24/22 17:01 Last Admin: 10/24/22 17:08 Dose: 75 mg Documented By: DONN Metoprolol Tartrate (Metoprolol Tartrate 1 Mg/Ml Vial) 5 mg IV NOW STA Stop: 10/24/22 01:48 Last Admin: 10/24/22 02:26 Dose: 5 mg Documented By: MOLLY Metoprolol Tartrate (Metoprolol Tartrate 1 Mg/Ml Vial) 5 mg IV NOW STA Stop: 10/24/22 07:23 Last Admin: 10/24/22 07:39 Dose: 5 mg Documented By: ROWENA Medical Decision Making Differential Diagnosis Differential diagnoses includes but is not limited to acute coronary syndrome, myocardial infarction, pericarditis, pulmonary embolus, aortic dissection, pneumonia, pneumothorax, musculoskeletal, shingles, esophageal. Medical Records Attestation: I reviewed the patient's medical records. Home Medications Current Medication List: was personally reviewed by me Laboratory Data Attestation: I reviewed the patient's lab results. Result diagrams: 10/25/22 04:43 10/25/22 04:43 Lab Results 10/24/22 10/24/22 10/24/22 Range/Units 02:10 02:10 02:10 WBC 7.01 (4.8-10.8) K/ul RBC 4.48 (3.93-5.22) M/uL Hgb 14.0 (12.0-16.0) g/dl Hct 41.4 (34.1-44.9) % MCV 92.4 (80.0-100.0) fL MCH 31.3 (25.0-34.0) pg MCHC 33.8 (32.0-36.0) g/dL RDW Std Deviation 42.8 (36.4-46.3) fL RDW Coeff of Basil 12.6 (11.5-14.5) % Plt Count 261 (130-400) K/uL MPV 10.3 (9.4-12.3) fL Immature Gran % (Auto) 0.9 % Neut % (Auto) 60.6 % Lymph % (Auto) 27.7 % [place] % (Auto) 8.4 % Eos % (Auto) 1.7 % Baso % (Auto) 0.7 % Neut # (Auto) 4.25 (1.4-6.5) K/uL Lymph # (Auto) 1.94 (1.2-3.4) K/uL [place] # (Auto) 0.59 (0.24-0.82) K/uL Eos # (Auto) 0.12 (0-0.50) K/uL Baso # (Auto) 0.05 (0-0.2) K/uL Immature Gran # (Auto) 0.06 H (0.00-0.02) K/uL PT (9.0-12.0) Seconds INR (0.9-1.1) APTT (21.0-31.0) Seconds PTT Ratio D-Dimer (0-500) ug/L FEU Sodium 134 L (136-145) mmol/L Potassium TNP Chloride 99 (98-107) mmol/L Carbon Dioxide 25 (21-32) mmol/L Anion Gap 10 (3-11) BUN 19 (6-23) mg/dl Creatinine 0.71 (0.6-1.2) mg/dl Est Cr Clr Drug Dosing Not Reportable Est GFR ( Amer) 93.2 ml/min Est GFR (Non-Af Amer) 80.4 ml/min BUN/Creatinine Ratio 26.8 H (10-20) Glucose 101 H (70-99(Fasting)) mg/dl Calcium 9.2 (8.5-10.1) mg/dl Magnesium 1.8 (1.7-2.4) mg/dl Total Bilirubin 0.3 (0.2-1.0) mg/dl AST TNP ALT 18 (7-52) U/L Alkaline Phosphatase 61 (34-104) U/L Troponin I High Sens 7.3 (0-14) pg/ml Total Protein 7.4 (6.0-8.3) gm/dl Albumin 4.3 (3.4-5.0) gm/dl Globulin 3.1 (2.5-4.0) gm/dl Albumin/Globulin Ratio 1.4 (0.9-2) TSH 1.807 (0.300-4.500) uIu/ml 10/24/22 10/24/22 10/24/22 Range/Units 02:10 03:50 05:42 WBC (4.8-10.8) K/ul RBC (3.93-5.22) M/uL Hgb (12.0-16.0) g/dl Hct (34.1-44.9) % MCV (80.0-100.0) fL MCH (25.0-34.0) pg MCHC (32.0-36.0) g/dL RDW Std Deviation (36.4-46.3) fL RDW Coeff of Basil (11.5-14.5) % Plt Count (130-400) K/uL MPV (9.4-12.3) fL Immature Gran % (Auto) % Neut % (Auto) % Lymph % (Auto) % [place] % (Auto) % Eos % (Auto) % Baso % (Auto) % Neut # (Auto) (1.4-6.5) K/uL Lymph # (Auto) (1.2-3.4) K/uL [place] # (Auto) (0.24-0.82) K/uL Eos # (Auto) (0-0.50) K/uL Baso # (Auto) (0-0.2) K/uL Immature Gran # (Auto) (0.00-0.02) K/uL PT 11.3 (9.0-12.0) Seconds INR 1.1 (0.9-1.1) APTT 23.1 (21.0-31.0) Seconds PTT Ratio 0.8 D-Dimer 4340 H* (0-500) ug/L FEU Sodium (136-145) mmol/L Potassium TNP 3.7 Chloride (98-107) mmol/L Carbon Dioxide (21-32) mmol/L Anion Gap (3-11) BUN (6-23) mg/dl Creatinine (0.6-1.2) mg/dl Est Cr Clr Drug Dosing Est GFR ( Amer) ml/min Est GFR (Non-Af Amer) ml/min BUN/Creatinine Ratio (10-20) Glucose (70-99(Fasting)) mg/dl Calcium (8.5-10.1) mg/dl Magnesium (1.7-2.4) mg/dl Total Bilirubin (0.2-1.0) mg/dl AST TNP 26 ALT (7-52) U/L Alkaline Phosphatase (34-104) U/L Troponin I High Sens (0-14) pg/ml Total Protein (6.0-8.3) gm/dl Albumin (3.4-5.0) gm/dl Globulin (2.5-4.0) gm/dl Albumin/Globulin Ratio (0.9-2) TSH (0.300-4.500) uIu/ml Imaging Data My Impression: X-ray: I interpreted the following studies. Chest: A single view study of the chest was reviewed and was negative for cardiomegaly, focal infiltrate, effu vianey, pulmonary edema, or wide mediastinum. Radiologist's Impression: CTA chest: Negative for PE. No acute airspace disease or effusions. Mild dependent atelectasis noted. Subtle subcutaneous infiltration and skin thickening noted just below the left breast involving the left anterolateral chest wall may reflect focal cellulitis. Radiologist: Jeremi Hull MD ECG Data Attestation: I personally reviewed and interpreted this ECG as follows: Indication: + chest pain Rate (beats per minute): 100 Rhythm: + atrial fibrillation ECG Intervals/blocks: + Normal QRS and + Normal QT ECG Mims: + Normal ECG ST segments: + Nonspecific ST abnormalities MDM Narrative An order was placed for continuous cardiac monitoring. The monitor shows a rate of _102_ with __atrial fibrillation_ rhythm. This is an 82-year-old female presents emergency department due to concern for palpitations, chest pain, and fall. Patient found to be in atrial fibrillation which patient has been suspicious of previously but was never formally diagnosed. Patient was initially tachycardic. She is not chronically anticoagulated, however was on other agents for blood pressure that would help with rate control. She was given IV metoprolol in the emergency room with improvement of her heart rate although was still in atrial fibrillation. Due to recent travel and accompanying chest pain which is new per patient, she was sent for CT imaging. Patient was noted to have chest wall contusion although she denied any other concerns or complaints related to which she described as a slow mild fall at home. Patient with no other evidence of trauma on exam other than inferior to the left breast. Patient did not seem clinically intoxicated on arrival despite use of alcohol earlier in the evening. Patient was cautiously hydrated, labs and imaging performed. Patient with a [id number] 2 score of 4. I discussed with her admission for additional evaluation, echo, and cardiology consultation. She verbalized understanding and was in agreement. 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 Impression & Plan Chest pain, New onset atrial fibrillation, Fall, Occasional alcohol consumption, Chest wall contusion Discharge Plan Visit Data Chief Complaint: Chest Pain Stated Complaint: CHEST PAIN-FALL,TROUBLE BREATHING ED Provider: Bailey Louis Discharge Problem: Chest pain, New onset atrial fibrillation, Fall, Occasional alcohol consumption, Chest wall contusion Patient Disposition: Admitted As Inpatient Discharge Instructions Interventions: ED Discharge Assessment Last Done: 10/24/22 10:00
[2022-10-24 02:30] LABS: Basophils # (auto) 0.05 K/uL (0-0.2); Basophils % (auto) 0.7 %; Eosinophils # (auto) 0.12 K/uL (0-0.50); Eosinophils % (auto) 1.7 %; Hematocrit (blood only) 41.4 % (34.1-44.9); Immature Granulocytes # (auto) 0.06 K/uL (0.00-0.02); Immature Granulocytes % (auto) 0.9 %; Lymphocytes # (auto) 1.94 K/uL (1.2-3.4); Lymphocytes % (auto) 27.7 %; Mean Corpuscular Hemoglobin 31.3 pg (25.0-34.0); Mean Corpuscular Hgb Conc 33.8 g/dL (32.0-36.0); Mean Corpuscular Volume 92.4 fL (80.0-100.0); Mean Platelet Volume 10.3 fL (9.4-12.3); Monocytes # (auto) 0.59 K/uL (0.24-0.82); Monocytes % (auto) 8.4 %; Neutrophils # (auto) 4.25 K/uL (1.4-6.5); Neutrophils % (auto) 60.6 %; Platelet Count 261 K/uL (130-400); RDW Coefficient of Variation 12.6 % (11.5-14.5); RDW Standard Deviation 42.8 fL (36.4-46.3); Red Blood Count 4.48 M/uL (3.93-5.22); White Blood Count 7.01 K/ul (4.8-10.8)
[2022-10-24 03:01] LABS: Troponin I High Sensitivity 7.3 pg/ml (0-14)
[2022-10-24 03:04] LABS: INR 1.1 (0.9-1.1); Partial Thromboplastin Ratio 0.8; Partial Thromboplastin Time 23.1 Seconds (21.0-31.0); Prothrombin Time 11.3 Seconds (9.0-12.0)
[2022-10-24 03:07] LABS: D Dimer 4340 ug/L FEU (0-500)
[2022-10-24 03:26] LABS: Alanine Aminotransferase 18 U/L (7-52); Albumin Globulin Ratio 1.4 (0.9-2); Albumin Level 4.3 gm/dl (3.4-5.0); Alkaline Phosphatase 61 U/L (34-104); Anion Gap 10 (3-11); BUN Creatinine Ratio 26.8 (10-20); Bilirubin,Total 0.3 mg/dl (0.2-1.0); Blood Urea Nitrogen 19 mg/dl (6-23); Calcium 9.2 mg/dl (8.5-10.1); Carbon Dioxide 25 mmol/L (21-32); Chloride 99 mmol/L (98-107); Est GFR (African American) 93.2 ml/min; Est GFR (Non-African American) 80.4 ml/min; Globulin 3.1 gm/dl (2.5-4.0); Glucose 101 mg/dl (70-99(Fasting)); Magnesium 1.8 mg/dl (1.7-2.4); Sodium 134 mmol/L (136-145); Total Protein 7.4 gm/dl (6.0-8.3)
[2022-10-24] MEDS ORDERED: OPTIRAY 320 500ml IV ONE (04:32)
[2022-10-24 06:22] LABS: Potassium 3.7 mmol/L (3.5-5.1)
[2022-10-24] MEDS ORDERED: LORazepam 1 MG TAB PO PRN (08:50)
--- NOTE | 2022-10-24 08:57 | History & Physical Report ---
Date of Service October 24, 2022 Assessment & Plan (1) New onset atrial fibrillation: Plan: 82-year-old female presenting after fall in the wee hours of the morning with associated LEFT-sided chest discomfort. Found to be in A. fib upon arrival in the emergency department. Required admission for cardiac work-up and management of new onset A. fib. - Patient currently on metoprolol for atrial tachyarrhythmia in the past. We will up her dose of metoprolol after conversation with cardiology. She has received intermittent doses of IV metoprolol which we can add if the patient's rate becomes unstable. - Will trend troponins and obtain Echo for the sake of completeness. - Patient's chest pain seems to be from contusion s/p fall. She reports no chest pain prior to fall and her pain is isolated and reproducible to the LEFT sided ribs. - [id number] Score: 4 - Discussed the case with Dr. Jolley. Patient is agreeable to NOAC - will start on Eliquis. Will also increase metoprolol as discussed. - Monitor on telemetry. - Patient anxious for discharge to home [facility]. (2) Fall: Plan: - Sounds mechanical in origin. 4 similar falls recently. Relates them to alcohol use, darkness, time of night, etc. - Question if amount of EtOH use is a driving factor.. - Did have extensive discussion with patient that she will need to be more careful and consider limiting her EtOH consumption to help minimize her risk of falls and injuries while on Eliquis. -With chest contusion-add pain control with Tylenol as needed, oxycodone as needed for moderate to severe pain, along with stool softener and MiraLAX as needed (3) Moderate alcohol consumption: Plan: - Patient drinks moderately (3-4 glasses of wine) daily. - Never with withdraw symptoms, but has also only not drank daily minimally in the past several years. - AWSS protocol in place. -Start thiamine and folic acid daily (4) Hypertension: Plan: - Will evaluate patient's home medications when available. - Continue home Rx while titrating up her BB as discussed. History of Present Illness Chief Complaint: Fall, A. fib, chest pain Primary Care Provider: NO PCP Patient is an 82-year-old female with a significant past medical history of hypertension, hyperlipidemia, prior isolated history of V. tach, atrial tachycardia, NSTEMI, history of vocal cord issues, and possible asthma. 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 She flew into the [place] airport on Monday. Last evening, to celebrate her birthday, she and friends had a 5 course meal that was paired with wine. She drank total 5 glasses of wine. She went to bed approximately 11 PM, but was unable to sleep secondary to nausea. She got out of bed and attempted to get some Tums, but she reports that she fell to the ground. She is uncertain what caused her fall. She denies losing consciousnes s. She not strike her head. She does report pain to the LEFT-sided ribs and chest since the fall. She admits that she is experiencing more falls in the evening times while at night after drinking on approximately 4 occasions throughout the last year. None of them resulted in complaints of chest discomfort. Her friend contacted EMS and brought her to the emergency department. She was noted to be in A. fib. She does report that she has felt palpitations. In discussion, the patient notes that she got some poor news about her friend's health condition on and noticed palpitations. When she checked her apple watch, it confirmed she was in A. fib. She states that this is happened intermittently throughout the year. She is uncertain if she is continue to feel palpitations since , but she admits that she has not checked her watch. Patient carries no known history of sustained A. fib, however on review of her record, she did have what appears to be A. fib that was precipitated by the use of beta agonists. During evaluation in the emergency department, the patient was noted to be in rate controlled A. fib. No other significant EKG changes noted. No elevation of troponins. CT of the chest demonstrated no PE or other structural abnormalities. No other significant electrolyte abnormalities were noted. Upon evaluation in the emergency department, the patient is awake, alert, and oriented. She does complain of pain to the LEFT-sided chest which she reports is worse with movements and deep inspiration. She complains of some intermittent palpitations, but no concerning symptoms at this point. Specifically, the patient denies complaints of headaches, dizziness, lightheadedness, blurry vision, double vision, slurred speech, unilateral weakness/numbness, shortness of breath, nausea, vomiting, or abdominal discomfort. Patient reports that she drinks 3 to 4 glasses of wine per night. She typically drinks between the hours of 4 PM and 11 PM. She states that she has done this for "years". She states that the last time she has been without a drink has been at least 3 to 4 years ago during a prior hospitalization. She states that during that time she had no withdrawal symptoms that she was aware of. She denies any other illicit substance use. She does report moderate caffeine intake. Allergies Allergy/AdvReac Type Severity Reaction Status Date / Time No Known Allergies Allergy Unverified 01/31/18 06:44 Home Medications Medication Instructions Recorded Confirmed Type calcium carbonate 600 mg-vitamin 1 tab PO DAILY 10/24/22 10/24/22 History D3 10 mcg (400 unit) tablet (Calcium 600 + D(3)) hydrochlorothiazide 12.5 mg tablet 12.5 mg PO QAM 10/24/22 10/24/22 History losartan 100 mg tablet 100 mg PO DAILY 10/24/22 10/24/22 History metoprolol succinate 50 mg 50 mg PO DAILY 10/24/22 10/24/22 History tablet,extended release 24 hr simvastatin 10 mg tablet 10 mg PO HS 10/24/22 10/24/22 History Past Med/Surg History Medical History Hyperlipidemia Hypertension Paroxysmal atrial fibrillation Surgical History H/O eye surgery Retinal detachment repair Family History Other Family history non-contributory Social History Smoking Status: Never smoker Hx Alcohol Use: Yes Alcohol type: wine and hard liquor Hx Substance Use: No Preferred Language: Lao Communication Ability: Effective 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 All else were negative. Physical Exam Physical Exam: VITAL SIGNS - Vital signs and nursing notes were reviewed. GENERAL - 82-year-old female appearing her stated age who is in no acute distress. Communicates well with provider and answers questions appropriately. HEAD - NC/AT. EYES - PERRL with EOMI bilaterally. Sclera anicteric. Palpebral conjunctiva pink and moist with no injection noted. EARS - No deformities of external structures noted on gross examination bilaterally. NOSE - Midline and without cyanosis. No epistaxis or purulent drainage noted. MOUTH/OROPHARYNX - Without perioral cyanosis. Buccal mucosa pink and moist. Good dentition noted. NECK - Neck with FROM. LUNGS - Chest wall symmetric without accessory muscle use, intercostals retractions, or central cyanosis. Normal vesicular breath sounds CTA B/L. No wheezes, rales, or rhonchi appreciated. CARDIAC - Irregularly irregular. No murmur, rubs, or gallops appreciated. Moderate reproducible tenderness to palpation appreciated over the anterior LEFT Sided chest wall. Bruising noted to the LEFT sided chest. ABDOMEN - Abdominal contour flat without pulsations or visible masses. BS normoactive all four quadrants. No tenderness, palpable masses, hepatosplenomegaly, or ascites noted. EXTREMITIES - No clubbing or peripheral cyanosis. No pretibial edema present. +3/5 radial and dorsalis pedis pulses palpated throughout. +5/5 strength noted in UE/LE bilaterally. NEUROLOGIC - Cranial nerves II through XII grossly intact. Sensory intact to light touch throughout. PSYCH - A&Ox3 and cooperates fully with examiner. Pt is very pleasant and interacts well with examiner. Results & Data Results & Data ([facility]) Vital Signs (Past 12 Hours) Vital Signs Temp Pulse Pulse Resp BP BP Pulse Ox 10/24/22 07:10 118 H 16 161/70 H 95 10/24/22 06:01 100 H 18 154/97 H 94 10/24/22 05:00 79 17 130/83 97 10/24/22 04:48 86 20 131/84 94 10/24/22 03:30 71 16 139/83 95 10/24/22 03:01 77 21 121/70 97 10/24/22 02:26 109 H 148/106 H 10/24/22 00:47 35.7 C L 102 H 20 141/77 H 99 O2 Del Method 10/24/22 07:10 Room Air 10/24/22 06:01 Room Air 10/24/22 05:00 Room Air 10/24/22 04:48 Room Air 10/24/22 03:30 Room Air 10/24/22 03:01 Room Air 10/24/22 02:26 10/24/22 00:47 Room Air Laboratory Results 10/24/22 10/24/22 10/24/22 Range/Units Unknown 17:48 11:07 WBC (4.8-10.8) K/ul RBC (3.93-5.22) M/uL Hgb (12.0-16.0) g/dl Hct (34.1-44.9) % MCV (80.0-100.0) fL MCH (25.0-34.0) pg MCHC (32.0-36.0) g/dL RDW Std Deviation (36.4-46.3) fL RDW Coeff of Basil (11.5-14.5) % Plt Count (130-400) K/uL MPV (9.4-12.3) fL Immature Gran % (Auto) % Neut % (Auto) % Lymph % (Auto) % [place] % (Auto) % Eos % (Auto) % Baso % (Auto) % Neut # (Auto) (1.4-6.5) K/uL Lymph # (Auto) (1.2-3.4) K/uL [place] # (Auto) (0.24-0.82) K/uL Eos # (Auto) (0-0.50) K/uL Baso # (Auto) (0-0.2) K/uL Immature Gran # (Auto) (0.00-0.02) K/uL PT (9.0-12.0) Seconds INR (0.9-1.1) APTT (21.0-31.0) Seconds PTT Ratio D-Dimer (0-500) ug/L FEU Sodium (136-145) mmol/L Potassium Chloride (98-107) mmol/L Carbon Dioxide (21-32) mmol/L Anion Gap (3-11) BUN (6-23) mg/dl Creatinine (0.6-1.2) mg/dl Est Cr Clr Drug Dosing Est GFR ( Amer) ml/min Est GFR (Non-Af Amer) ml/min BUN/Creatinine Ratio (10-20) Glucose (70-99(Fasting)) mg/dl Calcium (8.5-10.1) mg/dl Magnesium (1.7-2.4) mg/dl Total Bilirubin (0.2-1.0) mg/dl AST ALT (7-52) U/L Alkaline Phosphatase (34-104) U/L Troponin I High Sens 7.5 8.9 (0-14) pg/ml Total Protein (6.0-8.3) gm/dl Albumin (3.4-5.0) gm/dl Globulin (2.5-4.0) gm/dl Albumin/Globulin Ratio (0.9-2) TSH (0.300-4.500) uIu/ml SARS-CoV-2, RNA, NAAT NEGATIVE (NEGATIVE) 10/24/22 10/24/22 10/24/22 Range/Units 05:42 03:50 02:10 WBC (4.8-10.8) K/ul RBC (3.93-5.22) M/uL Hgb (12.0-16.0) g/dl Hct (34.1-44.9) % MCV (80.0-100.0) fL MCH (25.0-34.0) pg MCHC (32.0-36.0) g/dL RDW Std Deviation (36.4-46.3) fL RDW Coeff of Basil (11.5-14.5) % Plt Count (130-400) K/uL MPV (9.4-12.3) fL Immature Gran % (Auto) % Neut % (Auto) % Lymph % (Auto) % [place] % (Auto) % Eos % (Auto) % Baso % (Auto) % Neut # (Auto) (1.4-6.5) K/uL Lymph # (Auto) (1.2-3.4) K/uL [place] # (Auto) (0.24-0.82) K/uL Eos # (Auto) (0-0.50) K/uL Baso # (Auto) (0-0.2) K/uL Immature Gran # (Auto) (0.00-0.02) K/uL PT 11.3 (9.0-12.0) Seconds INR 1.1 (0.9-1.1) APTT 23.1 (21.0-31.0) Seconds PTT Ratio 0.8 D-Dimer 4340 H* (0-500) ug/L FEU Sodium (136-145) mmol/L Potassium 3.7 TNP Chloride (98-107) mmol/L Carbon Dioxide (21-32) mmol/L Anion Gap (3-11) BUN (6-23) mg/dl Creatinine (0.6-1.2) mg/dl Est Cr Clr Drug Dosing Est GFR ( Amer) ml/min Est GFR (Non-Af Amer) ml/min BUN/Creatinine Ratio (10-20) Glucose (70-99(Fasting)) mg/dl Calcium (8.5-10.1) mg/dl Magnesium (1.7-2.4) mg/dl Total Bilirubin (0.2-1.0) mg/dl AST 26 TNP ALT (7-52) U/L Alkaline Phosphatase (34-104) U/L Troponin I High Sens (0-14) pg/ml Total Protein (6.0-8.3) gm/dl Albumin (3.4-5.0) gm/dl Globulin (2.5-4.0) gm/dl Albumin/Globulin Ratio (0.9-2) TSH (0.300-4.500) uIu/ml SARS-CoV-2, RNA, NAAT (NEGATIVE) 10/24/22 10/24/22 10/24/22 Range/Units 02:10 02:10 02:10 WBC 7.01 (4.8-10.8) K/ul RBC 4.48 (3.93-5.22) M/uL Hgb 14.0 (12.0-16.0) g/dl Hct 41.4 (34.1-44.9) % MCV 92.4 (80.0-100.0) fL MCH 31.3 (25.0-34.0) pg MCHC 33.8 (32.0-36.0) g/dL RDW Std Deviation 42.8 (36.4-46.3) fL RDW Coeff of Basil 12.6 (11.5-14.5) % Plt Count 261 (130-400) K/uL MPV 10.3 (9.4-12.3) fL Immature Gran % (Auto) 0.9 % Neut % (Auto) 60.6 % Lymph % (Auto) 27.7 % [place] % (Auto) 8.4 % Eos % (Auto) 1.7 % Baso % (Auto) 0.7 % Neut # (Auto) 4.25 (1.4-6.5) K/uL Lymph # (Auto) 1.94 (1.2-3.4) K/uL [place] # (Auto) 0.59 (0.24-0.82) K/uL Eos # (Auto) 0.12 (0-0.50) K/uL Baso # (Auto) 0.05 (0-0.2) K/uL Immature Gran # (Auto) 0.06 H (0.00-0.02) K/uL PT (9.0-12.0) Seconds INR (0.9-1.1) APTT (21.0-31.0) Seconds PTT Ratio D-Dimer (0-500) ug/L FEU Sodium 134 L (136-145) mmol/L Potassium TNP Chloride 99 (98-107) mmol/L Carbon Dioxide 25 (21-32) mmol/L Anion Gap 10 (3-11) BUN 19 (6-23) mg/dl Creatinine 0.71 (0.6-1.2) mg/dl Est Cr Clr Drug Dosing Not Reportable Est GFR ( Amer) 93.2 ml/min Est GFR (Non-Af Amer) 80.4 ml/min BUN/Creatinine Ratio 26.8 H (10-20) Glucose 101 H (70-99(Fasting)) mg/dl Calcium 9.2 (8.5-10.1) mg/dl Magnesium 1.8 (1.7-2.4) mg/dl Total Bilirubin 0.3 (0.2-1.0) mg/dl AST TNP ALT 18 (7-52) U/L Alkaline Phosphatase 61 (34-104) U/L Troponin I High Sens 7.3 (0-14) pg/ml Total Protein 7.4 (6.0-8.3) gm/dl Albumin 4.3 (3.4-5.0) gm/dl Globulin 3.1 (2.5-4.0) gm/dl Albumin/Globulin Ratio 1.4 (0.9-2) TSH 1.807 (0.300-4.500) uIu/ml SARS-CoV-2, RNA, NAAT (NEGATIVE) Diagnostic Findings Chest X-Ray 10/24/22 00:54 XR chest 1V portable CLINICAL HISTORY: Chest Pain TECHNIQUE: Single frontal radiograph of the chest was obtained. Comparison: Comparison is made to chest radiograph 01/31/2018 FINDINGS: No lines and tubes are seen. Cardiomegaly is noted. The lungs are clear. No evidence of pleural effusion or pneumothorax. IMPRESSION: No acute chest disease. Cardiomegaly is noted. ACT 112: Negative or not required by law. Electronically signed by: Jeremi Ruiz M.D. 10/24/2022 10:44 AM Chest CTA 10/24/22 03:16 CT angio chest PE protocol CLINICAL HISTORY: PE TECHNIQUE: Multidetector row helical CT of the chest was performed with angiographic protocol. Coronal and sagittal reformations were obtained. Coronal and sagittal MIPS were obtained from the axial data set and were submitted for review. Automated dose lowering techniques and/or adjustment according to patient size were utilized for this exam. CT DOSE: 888.05 mGy.cm Comparison: Comparison is made to CT chest 01/31/2018 FINDINGS: Lungs and pleura: Atelectasis versus scarring is seen in the dependent portions of the lungs. Heart and pericardium: Cardiomegaly is seen with biatrial enlargement. Vessels: No evidence of pulmonary embolism. Mediastinum and myles: Unremarkable. Chest wall and lower neck: Unremarkable. Abdomen: A hiatal hernia is seen. Bones: Degenerative changes in the thoracic spine. IMPRESSION: No evidence of pulmonary embolism. ACT 112: Negative or not required by law. Electronically signed by: Jeremi Ruiz M.D. 10/24/2022 11:40 AM ECG Additional Comments: ECG on 10/24/2022 at 1:00 AM with atrial fibrillation, rate 100, nonspecific T wave abnormality in inferior leads Code Status & VTE Plan Code Status Full code VTE Prophylaxis Plan VTE Prophylaxis will be ordered: Yes Supervising Physician Co-Signing Physician Notes PA Supervision Note: I personally saw and examined the patient. I verified all jean baptiste points and agree with PA Christelle with the following exceptions and/or additions: S-this patient is an 82-year-old female with a history of HTN and paroxysmal atrial fibrillation not on anticoagulation who presents to the ER after having a fall. She is noted palpitations off and on and a fast heart rate via her watch the last few days. She drank 4 to 5 glasses of wine for her 82th birthday dinner last night and in the middle the night was walking across her bedroom and had a fall down onto the floor onto her chest and left side. She came in due to pain and palpitations and was found to be in rapid atrial fibrillation. She denies head injury or headache, no numbness or tingling or weakness. No shortness of breath or nausea. No abdominal pains. History and ROS otherwise reviewed as above O- Vitals reviewed Gen: AAOx3, NAD HEENT: Anicteric sclerae, EOMI, PERRL CV: Irregularly irregular, tachycardic in the 1 teens to 120s no mgr nl S1S2, left anterior rib cage under left breast with area of ecchymosis and tenderness to palpation, also tenderness to palpation over the sternum but no bruising Pulm: CTAB no wcr Abd: +BS soft NT ND no masses or hernias Ext: Trace edema legs bilaterally, 2+ DP pulses Skin: No rashes, warm/dry Neuro: Full strength throughout Labs, Rads, and ECG reviewed [id number]-old female here with rapid atrial fibrillation in the setting of heavy alcohol use and with a fall with chest contusion. Had at least 1 episode of atrial fibrillation in the past in this facility 4 years ago but is not currently on anticoagulation With elevated [id number] score as above, is high risk for stroke and should be started on anticoagulation-she is agreeable to Eliquis 5 Mg p.o. twice daily Increase her home Toprol-XL to 75 mg daily for improved rate control She may spontaneously convert. If she does not, she could potentially have a DC cardioversion in 3 to 4 weeks when she returns to [place] and follows up with cardiology there. Advised avoidance of heavy amounts of alcohol and caffeine Monitor on telemetry Trend troponins Awaiting echocardiogram Appreciate cardiology consult Plan to discharge home tomorrow if remains stable PG Care Time/CCT Total # of Minutes Spent Total Time Spent with Patient: Total time spent is greater than 50% in coordination of care (as documented) at patient's floor/unit and/or counseling patient: Coding Level of Care Code 66877 Initial Inpt Care Lvl 3 Diagnoses New onset atrial fibrillation I48.91 Fall W19.XXXA Moderate alcohol consumption Z78.9 Hypertension I10 Time Spent (min) 50
[2022-10-24] MEDS ORDERED: POTASSIUM CHLORIDE / WTR 10 MEQ/100 ML PLCT IV ONE (09:00)
[2022-10-24] MEDS ORDERED: APIXABAN 5 MG TABLET PO ONE (09:15)
--- NOTE | 2022-10-24 10:45 | XRay Report ---
XR chest 1V portable CLINICAL HISTORY: Chest Pain TECHNIQUE: Single frontal radiograph of the chest was obtained. Comparison: Comparison is made to chest radiograph 01/31/2018 FINDINGS: No lines and tubes are seen. Cardiomegaly is noted. The lungs are clear. No evidence of pleural effus ion or pneumothorax. IMPRESSION: No acute chest disease. Cardiomegaly is noted. ACT 112: Negative or not required by law. Electronically signed by: Jeremi Ruiz M.D. 10/24/2022 10:44 AM
[2022-10-24] MEDS: THIAMINE HCL 100 MG TAB PO SCH (11:01)
[2022-10-24] MEDS: FOLIC ACID 1 MG TAB PO SCH (11:01)
--- NOTE | 2022-10-24 11:41 | CT Scan Report ---
CT angio chest PE protocol CLINICAL HISTORY: PE TECHNIQUE: Multidetector row helical CT of the chest was performed with angiographic protocol. Escobedo l and sagittal reformations were obtained. Coronal and sagittal MIPS were obtained from the axial sepideh a set and were submitted for review. Automated dose lowering techniques and/or adjustment according to patient size were utilized for this exam. CT DOSE: 888.05 mGy.cm Comparison: Comparison is made to CT chest 01/31/2018 FINDINGS: Lungs and pleura: Atelectasis versus scarring is seen in the dependent portions of the lungs. Heart and pericardium: Cardiomegaly is seen with biatrial enlargement. Vessels: No evidence of pulmonary embolism. Mediastinum and myles: Unremarkable. Chest wall and lower neck: Unremarkable. Abdomen: A hiatal hernia is seen. Bones: Degenerative changes in the thoracic spine. IMPRESSION: No evidence of pulmonary embolism. ACT 112: Negative or not required by law. Electronically signed by: Jeremi Ruiz M.D. 10/24/2022 11:40 AM
--- NOTE | 2022-10-24 14:37 | Cardiology Consultation ---
Date of Consultation October 24, 2022 Assessment & Plan (1) New onset atrial fibrillation: -asymptomatic according to her report. -agree with initiating Eliquis 5 mg b.i.d. -agree with increasing metoprolol succinate to 75 mg daily. May need to increase to 100 mg daily. -echocardiogram pending. (2) Hypertension: -follow-up 1 increased dose of metoprolol succinate. (3) Musculoskeletal chest pain: -secondary to her mechanical fall. -analgesics. History of Present Illness Attending Physician: Moni Casillas MD History of Present Illness Mrs. Adame is an 82-year-old female admitted earlier today with atrial fibrillation and a rapid ventricular response. This consultation was ordered to assist in her cardiac management. The patient was in her usual state of health until early this morning. Last evening, she finished a 5 course meal to celebrate her birthday. This included at least 5 glasses of wine. The patient went to bed approximately 11:00 p.m. but was unable to sleep due to nausea. She got up to use the bathroom and fell against the door frame in her bedroom striking her left side. There was no loss of consciousness. Because of chest discomfort in that area, the patient presented to the emergency room for further care. On arrival here, patient was noted to be in atrial fibrillation with a rapid ventricular response. She was not experiencing symptoms such as palpitations fatigue. Patient explains that she has been diagnosed with paroxysmal atrial fib rillation. She has had 2 or 3 episodes of atrial fibrillation over the last several months. Each episode usually resolves over several hours. She has not been on long-term anticoagulation. Currently, patient is resting comfortably in bed does complain of tenderness to palpation over the left chest and axilla. Past medical and surgical history 1. Paroxysmal atrial fibrillation 2. Hypertension 3. Hypercholesterolemia 4. Paroxysmal atrial tachycardia-January 2018 5. Normal coronary arteries-January 2018 6. Left THR Social history Lives in [place], spends 1 week each month in [place]. 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 Allergies Allergy/AdvReac Type Severity Reaction Status Date / Time No Known Allergies Allergy Unverified 01/31/18 06:44 Home Medications Medication Instructions Recorded Confirmed Type Budesonide/Formoterol Fumarate 2 puff inhalation BID PRN 01/31/18 History (Symbicort 160-4.5 Mcg/Act) SOB/Wheezing ##0 Fluticasone Propionate (Nasal) ##0 01/31/18 History (Flonase Allergy Relief) HYDROCHLOROTHIAZIDE 1 tab PO DAILY #0 tabs 01/31/18 History LORAZEPAM (ATIVAN) 0.5 mg PO BID PRN Anxiety #0 tabs 01/31/18 History SIMVASTATIN (ZOCOR) 1 tab PO HS 30 days #30 tabs 01/31/18 History Tramadol (Ultram) 50 mg PO Q6 PRN Pain #0 tabs 01/31/18 History Albuterol (Ventolin Hfa) 2 puff inhalation QID PRN 02/02/18 Rx SOB/Wheezing 30 days #1 inhaler Docusate Sodium 100 mg PO BID 7 days #14 caps 02/02/18 Rx Folic Acid 1 mg PO QAM 30 days #30 tabs 02/02/18 Rx Hydrocodone/Homatropine (Hydromet 5 ml PO Q4H PRN Cough 3 days #90 mL 02/02/18 Rx 5-1.5 mg/5Ml) Metoprolol Succinate (TOPROL XL) 75 mg PO DAILY 30 days #45 tabs 02/02/18 Rx Pantoprazole (Pantoprazole Sodium) 40 mg PO BID 14 days #28 tabs 02/02/18 Rx Prednisone Tab (PREDNISONE) 10 mg PO UD #20 tabs 02/02/18 Rx Thiamine HCl (Vitamin B-1) 100 mg PO QAM 30 days #30 tabs 02/02/18 Rx losartan 100 mg tablet 100 mg PO DAILY 10/24/22 10/24/22 History Patient History Medical History Hypertension Social History Smoking Status: Never smoker Hx Alcohol Use: Yes Alcohol type: wine and hard liquor Hx Substance Use: No Preferred Language: Turkish Communication Ability: Effective Television Analyzer Required: No Beliefs That Will Affect Care: None Current Living Situation: Alone Other Information That Helps Us Care for You: No Feels Safe at Home: Yes Safety Concerns: Feels Safe At This Time Assistive Devices: Glasses Assistive Devices Comment: glasses for driving Physical Exam Physical Exam: In general is well-developed well-nourished white female no acute distress. HEENT exam is negative. Neck is supple with full carotid upstrokes. No carotid bruits. Jugular is pressure is flat at 90. There is no thyromegaly. Cardiovascular exam reveals an irregularly irregular rhythm with distant heart sounds. No obvious murmurs. Lungs are clear without rales, or wheezes. Chest reveals significant tenderness to palpation along the left axillary line. An excoriation is noted under the left breast laterally. Abdomen is soft without bruits. Extremities reveal intact radial artery pulses bilaterally. There is no peripheral edema. Results & Data ([facility]) Vital Signs (Past 12 Hours) Vital Signs Temp Pulse Pulse Resp BP BP Pulse Ox 10/24/22 12:00 36.6 C 102 H 20 185/97 H 97 10/24/22 09:54 113 H 16 155/70 H 96 10/24/22 09:54 110 H 16 96 10/24/22 07:10 118 H 16 161/70 H 95 10/24/22 06:01 100 H 18 154/97 H 94 10/24/22 05:00 79 17 130/83 97 10/24/22 04:48 86 20 131/84 94 10/24/22 03:30 71 16 139/83 95 10/24/22 03:01 77 21 121/70 97 O2 Del Method 10/24/22 12:00 Room Air 10/24/22 09:54 Room Air 10/24/22 09:54 Room Air 10/24/22 07:10 Room Air 10/24/22 06:01 Room Air 10/24/22 05:00 Room Air 10/24/22 04:48 Room Air 10/24/22 03:30 Room Air 10/24/22 03:01 Room Air Laboratory Results CBC notes hemoglobin 14.0, hematocrit 41.4, white count 7.01, and platelet count [id number]. Electrolytes note a sodium of 134, potassium 3.7, chloride 99, bicarb 25, BUN 19, creatinine 0.71, glucose of 101. Initial high sensitivity troponin was 7.3 with a follow-up value 8.9. Diagnostic Findings EKG notes atrial fibrillation and a rapid ventricular response. Chest x-ray shows cardiomegaly but no acute disease. CT scan of the chest fails to show pulmonary embolism. PG Care Time/CCT Total # of Minutes Spent Total Time Spent with Patient: Total time spent is greater than 50% in coordination of care (as documented) at patient's floor/unit and/or counseling patient: Coding Level of Care Code INT OBSERVATION CARE 70M LVL 3 Diagnoses New onset atrial fibrillation I48.91 Hypertension I10 Musculoskeletal chest pain R07.89
--- NOTE | 2022-10-24 15:35 | XCELERA ---
[id number]
[2022-10-24] MEDS ORDERED: ACETAMINOPHEN 500 MG TAB PO PRN (16:43)
[2022-10-24] MEDS ORDERED: POLYETHYLENE (MIRALAX) 17 GM PACK PO PRN (16:44)
--- NOTE | 2022-10-24 16:58 | Electrocardiogram Report ---
Test Reason : Blood Pressure : / mmHG Vent. Rate : 100 BPM Atrial Rate : 081 BPM P-R Int : 000 ms QRS Dur : 078 ms QT Int : 358 ms P-R-T Axes : 000 069 029 degrees QTc Int : 461 ms Poor data quality, interpretation may be adversely affected Atrial fibrillation Nonspecific ST abnormality Abnormal ECG When compared with ECG of 02-FEB-2018 06:31, Atrial fibrillation has replaced Sinus rhythm Nonspecific T wave abnormality now evident in Inferior leads Nonspecific T wave abnormality no longer evident in Lateral leads Confirmed by Mikal Jolley ([id number]) on 10/24/2022 4:58:05 PM Referred By: REFERRED SELF Confirmed By:Mikal Jolley
[2022-10-24] MEDS ORDERED: METOPROLOL SUCC 25MG EXT REL TAB PO ONE (17:00)
[2022-10-24] MEDS: DOCUSATE SODIUM 100 MG CAP PO SCH (17:08)
[2022-10-24] MEDS: oxyCODONE HCL IR 5 MG TAB (IMMEDIATE RELEASE) PO PRN ×2 (17:09→23:25)
[2022-10-24] MEDS: APIXABAN 5 MG TABLET PO SCH (20:23)
[2022-10-24] MEDS ORDERED: MAGNESIUM SULFATE / D5W 1 GM/100 ML BAG IV ONE (20:45)
[2022-10-24] MEDS ORDERED: SIMVASTATIN 10 MG TAB PO SCH (21:00)
[2022-10-25 05:10] LABS: Basophils # (auto) 0.07 K/uL (0-0.2); Basophils % (auto) 1.1 %; Eosinophils # (auto) 0.21 K/uL (0-0.50); Eosinophils % (auto) 3.2 %; Hematocrit (blood only) 36.8 % (34.1-44.9); Hemoglobin 12.6 g/dl (12.0-16.0); Immature Granulocytes # (auto) 0.02 K/uL (0.00-0.02); Immature Granulocytes % (auto) 0.3 %; Lymphocytes % (auto) 31.7 %; Mean Corpuscular Hemoglobin 31.6 pg (25.0-34.0); Mean Corpuscular Hgb Conc 34.2 g/dL (32.0-36.0); Mean Corpuscular Volume 92.2 fL (80.0-100.0); Mean Platelet Volume 10.1 fL (9.4-12.3); Monocytes # (auto) 0.71 K/uL (0.24-0.82); Monocytes % (auto) 10.7 %; Neutrophils # (auto) 3.52 K/uL (1.4-6.5); Platelet Count 233 K/uL (130-400); RDW Coefficient of Variation 12.9 % (11.5-14.5); RDW Standard Deviation 43.5 fL (36.4-46.3); Red Blood Count 3.99 M/uL (3.93-5.22); White Blood Count 6.63 K/ul (4.8-10.8)
[2022-10-25 05:58] LABS: BUN Creatinine Ratio 22.7 (10-20); Calcium 8.4 mg/dl (8.5-10.1); Chol HDL Ratio 2.2 (0-5); Creatinine Clr Calc Pharmacy 67.6 ml/min; Est GFR (African American) 96.7 ml/min; Est GFR (Non-African American) 83.4 ml/min; Potassium 4.5 mmol/L (3.5-5.1)
[2022-10-25] MEDS: oxyCODONE HCL IR 5 MG TAB (IMMEDIATE RELEASE) PO PRN (08:12)
[2022-10-25] MEDS: APIXABAN 5 MG TABLET PO SCH (08:12)
[2022-10-25] MEDS: THIAMINE HCL 100 MG TAB PO SCH (08:14)
[2022-10-25] MEDS: FOLIC ACID 1 MG TAB PO SCH (08:15)
[2022-10-25] MEDS: DOCUSATE SODIUM 100 MG CAP PO SCH (08:15)
[2022-10-25] MEDS ORDERED: hydroCHLOROthiazide 25 MG TAB PO SCH (09:00)
[2022-10-25] MEDS ORDERED: LOSARTAN POTASSIUM 50 MG TAB PO SCH (09:00)
[2022-10-25] MEDS ORDERED: METOPROLOL SUCC 50MG EXT REL TAB PO SCH (09:00)
--- NOTE | 2022-10-25 11:40 | Discharge Summary ---
Date of Service October 25, 2022 Admission HPI Per Admitting Provider Patient is an 82-year-old female with a significant past medical history of hypertension, hyperlipidemia, prior isolated history of V. tach, atrial tachycardia, NSTEMI, history of vocal cord issues, and possible asthma. 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 She flew into the [place] airport on Monday. Last evening, to celebrate her birthday, she and friends had a 5 course meal that was paired with wine. She drank total 5 glasses of wine. She went to bed approximately 11 PM, but was unable to sleep secondary to nausea. She got out of bed and attempted to get some Tums, but she reports that she fell to the ground. She is uncertain what caused her fall. She denies losing consciousness. She not strike her head. She does report pain to the LEFT-sided ribs and chest since the fall. She admits that she is experiencing more falls in the evening times while at night after drinking on approximately 4 occasions throughout the last year. None of them resulted in complaints of chest discomfort. Her friend contacted EMS and brought her to the emergency department. She was noted to be in A. fib. She does report that she has felt palpitations. In discussion, the patient notes that she got some poor news about her friend's health condition on and noticed palpitations. When she checked her apple watch, it confirmed she was in A. fib. She states that this is happened intermittently throughout the year. She is uncertain if she is continue to feel palpitations since , but she admits that she has not checked her watch. Patient carries no known history of sustained A. fib, however on review of her record, she did have what appears to be A. fib that was precipitated by the use of beta agonists. During evaluation in the emergency department, the patient was noted to be in rate controlled A. fib. No other significant EKG changes noted. No elevation of troponins. CT of the chest demonstrated no PE or other structural abnormalities. No other significant electrolyte abnormalities were noted. Upon evaluation in the emergency department, the patient is awake, alert, and oriented. She does complain of pain to the LEFT-sided chest which she reports is worse with movements and deep inspiration. She complains of some intermittent palpitations, but no concerning symptoms at this point. Sp ecifically, the patient denies complaints of headaches, dizziness, lightheadedness, blurry vision, double vision, slurred speech, unilateral weakness/numbness, shortness of breath, nausea, vomiting, or abdominal discomfort. Patient reports that she drinks 3 to 4 glasses of wine per night. She typically drinks between the hours of 4 PM and 11 PM. She states that she has done this for "years". She states that the last time she has been without a drink has been at least 3 to 4 years ago during a prior hospitalization. She states that during that time she had no withdrawal symptoms that she was aware of. She denies any other illicit substance use. She does report moderate caffeine intake. Principal Diagnosis Rapid atrial fibrillation Fall with chest wall contusion Hyponatremia Discharge Exam Vitals reviewed Gen: [AAOx3, NAD] HEENT: [anicteric sclerae, EOMI] CV: [irreg irreg, normal rates, no mgr nl S1S2] Pulm: [CTAB no wcr] Abd: [+BS soft NT ND no masses or hernias] Ext: [trace edema, 2+ DP pulses] Skin: [no rashes, warm/dry] Neuro: [full strength throughout] Discharge Data Allergies Allergy/AdvReac Type Severity Reaction Status Date / Time No Known Allergies Allergy Unverified 01/31/18 06:44 Consultations 10/24/22 07:39 ED Decision to Admit Stat 10/24/22 08:45 Consult Cardiology Routine Ordered Studies 10/24/22 03:16 CT angio chest PE protocol Urgent ECHO Hospital Course (1) New onset atrial fibrillation: This patient is an 82-year-old female with a history of HTN and paroxysmal atrial fibrillation not on anticoagulation who presents to the ER after having a fall. She has noted palpitations off and on and a fast heart rate via her watch the last few days. She drank 4 to 5 glasses of wine for her 82th birthday dinner the previous night and in the middle the night was walking across her bedroom and had a fall down onto the floor onto her chest and left side. She came in due to pain and palpitations and was found to be in rapid atrial fibrillation with HR in the 120s. She denies head injury or headache, no numbness or tingling or weakness. No shortness of breath or nausea. No abdominal pains. Had at least 1 episode of atrial fibrillation in the past in this facility 4 years ago but is not currently on anticoagulation, and also reports 2 episodes in the last 6 months that spontaneously resolved after a few days. With elevated [id number] score as above, is high risk for stroke and should be started on anticoagulation-she is agreeable to Eliquis 5 Mg p.o. twice daily Increased her home Toprol-XL to 75 mg daily for improved rate control and rates were in the 70-80s No other significant arrhythmias on tele Troponin trended and was negative x 3. ECHO with mild LVH, preserved EF, no significant valvular disease Advised avoidance of heavy amounts of alcohol and caffeine Appreciate cardiology consult Stable for dc to home on Toprol XL 75mg daily, Eliquis 5mg po bid F/u with PCP and Cardiology in [place] once she returns home (2) Fall: - Sounds mechanical in origin. 4 similar falls recently. Relates them to alcohol use, darkness, time of night, etc. - Question if amount of EtOH use is a driving factor.. - Did have extensive discussion with patient that she will need to be more careful and consider limiting her EtOH consumption to help minimize her risk of falls and injuries while on Eliquis. -With chest contusion-continue pain control with Tylenol as needed, oxycodone as needed for moderate to severe pain, along with stool softener as needed (3) Moderate alcohol consumption: - Patient drinks moderately (3-4 glasses of wine) daily. - Never had withdraw symptoms in the past -encouraged her to cut down to no more than 1-2 drinks per day -Start thiamine and folic acid daily (4) Hypertension: -BPs elevated on arrival, improved with increased dose of Toprol XL to 75mg daily -continue home losartan 100mg daily -dc HCTZ due to hyponatremia -start lasix 20mg po daily prn LE edema (5) Hyponatremia: Na+ low at 133-134 Pt reports her sodium was low prior to starting HCTZ, however I think she should stop HCTZ and instead use lasix 20mg daily as needed for peripheral edema follow up with PCP regarding this (6) Hyperlipidemia: continue simvastatin Plan Dispo-discharge to home, doing well Discussed care with her partner at the bedside Discussed care with Repairing Calibrator, Dr. Jolley Total Time Total Time Spent Total Time Spent (In Minutes): 35 min Discharge Plan Discharge Items Patient Disposition: Home - Self-Care Reason For Visit: AFIB Discharge Diagnosis: Rapid atrial fibrillation Fall, chest contusion Condition on Discharge: Good Activity: As commented below Lifting: Gradually increase as tolerated Bathing: No limitations Exercise/Sports: Gradually increase as tolerated Non-emergency contact: Primary Care Provider and Repairing Calibrator Call non-emergency contact if: you have any medication questions and your symptoms worsen Follow-up/Referrals: PCP,NO [Primary Care Provider] - (Follow up within 1-2 weeks.) Diet: Heart Healthy Addtl Attending Provider Instructions: You were admitted after a fall with a contusion to your chest wall and found to have atrial fibrillation. You were started on Eliquis as a blood thinner to prevent stroke that can be associated with atrial fibrillation. Your metoprolol dose was increased to 75mg daily to better control your heart rate. The echocardiogram of your heart was normal. Because of your low sodium and due to having your metoprolol dose increased, your HCTZ was stopped. You can take acetaminophen and/or oxycodone as needed for the pain in your chest from the fall. It is best to cut down on the amount of alcohol you drink each day to no more than 1-2 drinks per day. You should continue to take thiamine and folate to replenish your B vitamins. Please follow up with your primary care doctor when you return to [place] within 1 week. Pending Studies at Discharge: No Stand-Alone Forms: My [facility] Medications and DC Order Prescriptions: New acetaminophen [Tylenol Extra Strength] 500 mg Tablet 1,000 mg PO Q8H PRN (Reason: pain) Qty: 60 0RF Rx Instructions: Over the counter Eliquis 5 mg Tablet 5 mg PO BID Qty: 60 0RF docusate sodium 100 mg Capsule 100 mg PO BID PRN (Reason: constipation) Qty: 60 0RF Rx Instructions: Over the counter oxycodone 5 mg Tablet 5 mg PO Q6H PRN (Reason: moderate-severe pain) Qty: 15 0RF folic acid 1 mg Tablet 1 mg PO QAM Qty: 30 0RF Rx Instructions: Over the counter thiamine HCl (vitamin B1) 100 mg Tablet 100 mg PO QAM Qty: 30 0RF Rx Instructions: Over the counter furosemide [Lasix] 20 mg tablet 20 mg PO DAILY PRN (Reason: leg swelling) Qty: 30 0RF Continued losartan 100 mg Tablet 100 mg PO DAILY simvastatin 10 mg tablet 10 mg PO HS calcium carbonate-vitamin D3 [Calcium 600 + D(3)] 600 mg-10 mcg (400 unit) Tablet 1 tab PO DAILY Changed metoprolol succinate 50 mg tablet extended release 24 hr 75 mg PO DAILY Qty: 45 0RF Discontinued hydrochlorothiazide 12.5 mg tablet 12.5 mg PO QAM Discharge Orders: Discharge Order (Routine); Ordered 10/25/22 Ordered By: Moni Casillas Admission Data Admit Date/Time: 10/24/22 08:45 Attending Provider: Moni Casillas Admit Provider: Moni Casillas Primary Care Provider: PCP,NO Other Providers: Moni Casillas ; Panda Calvert ; Abdirashid Hampton ; Mikal Jolley ; Yayo Martin ; Ramu Pope ; Thanh Gonzalez Jr ; Doug Haas ; Rhea Suarez ; Deepti Lambert ; Igor Lemus ; Robert Keller ; Venkatesh Barber ; Jenny Bartlett ; Maty Lam ; Jhon Perkins ; Cheko Chowdary ; Baldo Boyer ; Yayo Shelley V. Coding Level of Care Code 35740 OBS Care - Discharge Diagnoses New onset atrial fibrillation I48.91 Fall W19.XXXA Moderate alcohol consumption Z78.9 Hypertension I10 Hyponatremia E87.1 Hyperlipidemia E78.5
--- NOTE | 2022-10-25 12:03 | Cardiology Progress Note ---
Date of Service October 25, 2022 Assessment & Plan (1) New onset atrial fibrillation: Plan: -asymptomatic currently. She denies palpitations. -continue Eliquis 5 mg b.i.d. -continue metoprolol succinate to 75 mg daily. -echocardiogram notes normal left ventricular systolic function without wall motion abnormalities. (2) Hypertension: Plan: -adequate control on current regimen. -mild left ventricle hypertrophy noted on echocardiogram. (3) Musculoskeletal chest pain: Plan: -secondary to her mechanical fall. Admission and Anticipated Discharge Date Admission Date: October 24, 2022 Subjective The patient is resting comfortably in bed without complaints of chest pain, dyspnea, or palpitations. Her friend, Kyle, is at the bedside. Physical Exam Physical Exam: In general is well-developed well-nourished white female no acute distress. HEENT exam is negative. Neck is supple with full carotid upstrokes. No carotid bruits. Jugular is pressure is flat at 90. There is no thyromegaly. Cardiovascular exam reveals an irregularly irregular rhythm with distant heart sounds. No obvious murmurs. Lungs are clear without rales, or wheezes. Chest reveals significant tenderness to palpation along the left axillary line. An excoriation is noted under the left breast laterally. Abdomen is soft without bruits. Extremities reveal intact radial artery pulses bilaterally. There is no peripheral edema. Results & Data ([facility]) Vital Signs (Past 12 Hours) Vital Signs Temp Pulse Pulse Resp BP BP Pulse Ox 10/25/22 08:45 10/25/22 09:05 36.6 C 10/25/22 08:09 80 21 10/25/22 08:09 114/63 10/25/22 08:00 84 19 10/25/22 07:00 69 13 10/25/22 06:01 74 12 10/25/22 02:27 36.4 C L 77 16 137/70 96 Pulse Ox O2 Del Method O2 Del Method 10/25/22 08:45 93 Room Air 10/25/22 09:05 10/25/22 08:09 10/25/22 08:09 10/25/22 08:00 10/25/22 07:00 10/25/22 06:01 10/25/22 02:27 Room Air Diagnostic Findings monitoring tech notes rate controlled atrial fibrillation. PG Care Time/CCT Total # of Minutes Spent Total Time Spent with Patient: Total time spent is greater than 50% in coordination of care (as documented) at patient's floor/unit and/or counseling patient: Coding Level of Care Code 11474 Subseq Hosp Care Lvl 3 Diagnoses New onset atrial fibrillation I48.91 Hypertension I10 Musculoskeletal chest pain R07.89
--- NOTE | 2022-10-25 16:39 | Electrocardiogram Report ---
Test Reason : Blood Pressure : / mmHG Vent. Rate : 073 BPM Atrial Rate : 340 BPM P-R Int : 000 ms QRS Dur : 074 ms QT Int : 368 ms P-R-T Axes : 000 052 046 degrees QTc Int : 405 ms Atrial fibrillation Nonspecific T wave abnormality Abnormal ECG When compared with ECG of 24-OCT-2022 01:00, QT has shortened Confirmed by Mikal Jolley ([id number]) on 10/25/2022 4:39:27 PM Referred By: REFERRED SELF Confirmed By:Mikal Jolley
== END 2022-10-25 12:55 | disposition home or self-care (01) ==
LOC: EDINP 00:45 → ED 00:45 → EDINP 10:00 → 1E 11:55